=== PATIENT | male | born 1955 | race Caucasian/White ===

== ENCOUNTER → 2024-09-19 17:19 | Outpatient (REF) | payer BC, SELFPAY | LOC: RAD 17:19 | PROVIDERS: ATTENDING PHYSICIAN Orthopaedic Surgery; FAMILY PHYSICIAN Internal Medicine | DX: M25.552 Pain in left hip (principal) | CPT/HCPCS: 73700 ==

== ENCOUNTER → 2024-10-02 16:55 | Outpatient (REF) | payer BC, SELFPAY | LOC: RAD 16:55 | PROVIDERS: FAMILY PHYSICIAN Internal Medicine | DX: M89.9 Disorder of bone, unspecified (principal) | CPT/HCPCS: 71250 ==

== ENCOUNTER → 2024-11-02 08:04 | Outpatient (REF) | payer BC, SELFPAY | LOC: PET 08:04 | PROVIDERS: ATTENDING PHYSICIAN Internal Medicine Hematology & Oncology | DX: C73 Malignant neoplasm of thyroid gland (principal); C34.92 Malignant neoplasm of unspecified part of left bronchus or lung; C79.51 Secondary malignant neoplasm of bone | CPT/HCPCS: 78815; A9552 ==

== ENCOUNTER 2024-11-26 06:05 | Day surgery (SDC) | payer BC, SELFPAY ==
[2024-11-19 14:17] VITALS: BMI 33.7
[2024-11-19 14:31] LABS: Hematocrit 45.0 % (39.0-52.0); Hemoglobin 14.4 g/dL (13.0-18.0); Mean Corp Hgb Conc. 32.0 g/dL (33.0-37.0); Mean Corpuscular Volume 88.4 fL (80.0-94.0); Platelet Count 217 10^3/uL (130-400); Red Cell Dist. Width 13.5 % (11.5-14.5)
[2024-11-19 14:41] LABS: INR 0.97; PT 13.2 Sec (11.4-14.6)
[2024-11-19 14:42] LABS: APTT 24.6 Sec (23.4-35.0)
[2024-11-19 15:06] LABS: Blood Urea Nitrogen 15 mg/dl (9-20); Calcium 9.8 mg/dl (8.4-10.2); Carbon Dioxide 29 mmol/L (22-30); Chloride 106 mmol/L (98-107); Estimated Creatinine Clearance 121 ml/min; Glucose 125 mg/dl (70-99); Potassium 4.4 mmol/L (3.5-5.1); Sodium 142 mmol/L (135-145); eGFR > 60.00
[2024-11-26] VITALS (7 sets, daily range): BP systolic 120–147; BP diastolic 68–99; BMI 33.7
[2024-11-26 07:07] LABS: Glucose - Point of Care 134 mg/dl (70-99)
[2024-11-26] MEDS: NSS 500 IV (07:09)
[2024-11-26 09:04] LABS: Glucose - Point of Care 159 mg/dl (70-99)
== END 2024-11-26 10:30 | disposition home or self-care (01) ==
LOC: SDS 06:05
PROVIDERS: ATTENDING PHYSICIAN Internal Medicine Critical Care Medicine; FAMILY PHYSICIAN Internal Medicine
DX: C34.12 Malignant neoplasm of upper lobe, left bronchus or lung (principal); R59.0 Localized enlarged lymph nodes; R09.89 Other specified symptoms and signs involving the circulatory and respiratory systems
CPT/HCPCS: 31627; 31623; 31629; 31628; 31624; 31652; 31654; 31899; 36415; 71045; 76000; 80048; 82962; 85027; 85610; 85730; 88112; 88173; 88305; 88333; 88341; 88342; 93005; C1887

== ENCOUNTER 2024-12-26 07:32 | Inpatient (IN) | payer BC, SELFPAY ==
[2024-12-17 08:43] LABS: Urine Character Clear (Clear)
[2024-12-17 08:46] LABS: INR 0.93; PT 12.7 Sec (11.4-14.6)
[2024-12-17 08:52] LABS: Hematocrit 47.3 % (39.0-52.0); Hemoglobin 15.1 g/dL (13.0-18.0); Mean Corp Hgb Conc. 31.9 g/dL (33.0-37.0); Mean Corpuscular Volume 88.6 fL (80.0-94.0); Nucleated Red Blood Cells % 0 % (-); Platelet Count 215 10^3/uL (130-400); Red Cell Dist. Width 12.5 % (11.5-14.5)
[2024-12-17 09:05] LABS: ALT (SGPT) 17 U/L (0-50); AST (SGOT) 17 U/L (17-59); Albumin 4.5 g/dl (3.5-5.0); Alkaline Phosphatase 105 U/L (38-126); Blood Urea Nitrogen 16 mg/dl (9-20); Calcium 9.6 mg/dl (8.4-10.2); Carbon Dioxide 29 mmol/L (22-30); Chloride 106 mmol/L (98-107); Glucose 153 mg/dl (70-99); Potassium 4.4 mmol/L (3.5-5.1); Sodium 142 mmol/L (135-145); Total Protein 6.8 g/dl (6.3-8.2); eGFR > 60.00
--- NOTE | 2024-12-17 09:19 | CM ---
Met with Mr. Lr in [facility] He states prior to admission he resides alone in a [address] with two steps to enter. He states he has a full flight of steps to get to his laundry room in the basement. He states prior to admission he was
independent with ambulation and adls. He states he has a single point cane and CPAP Machine at home. He states he has prescription plan and uses [facility]. He states he has friends and family that will check on him when he goes home. The
discharge plan is to return home with family and friend support with a home visit by the Transitional Care Nurse when medically stable.
We reviewed pre-op and post-op routines. We reviewed the shower instructions. He has the soap, written instructions and the Thoracic Surgery Educational Booklet. We also reviewed the restrictions including lifting and driving restrictions. We
discussed a home visit by the Transitional Care Nurse. He is agreeable to a home visit. The plan is for Robotic Assisted Left Lobectomy.
[2024-12-17 11:12] LABS: Glycohemoglobin (HgbA1c) 6.3 % (4.0-5.6)
[2024-12-17 13:45] VITALS: BMI 34.3
[2024-12-26] VITALS (14 sets, daily range): BP systolic 115–169; BP diastolic 63–115; BMI 33.1
--- NOTE | 2024-12-26 07:41 | W.CVOR.SURPR ---
CVOR Surgeon Immed Pre Op
-
I have examined this patient prior to performance of the scheduled procedure.
The patient's condition is unchanged from the time of the dictated/written History and
Physical and the patient is able to undergo the scheduled procedure.
All questions answered and he is ready to move forward. LEFT side marked.
--- NOTE | 2024-12-26 07:46 | PTCARENOTE ---
Surgical clip and prep preformed. Site marked by surgeon.
--- NOTE | 2024-12-26 10:39 | CM ---
Chart reviewed. Patient is in the OR today. Patient is independent of ADLS, lives alone in a [address], 2 [facility], ambulates with a SPC. Plan is for the patient to return home with CT Transitional RN. CM to follow
--- NOTE | 2024-12-26 11:06 | PTCARENOTE ---
Pt sent to CVGOR in bed, x 3 monitor, and scd's along.
--- NOTE | 2024-12-26 11:08 | PTCARENOTE ---
Pt sent to CVOR in bed, x 3 monitor, and scd's along.
[2024-12-26 11:58] LABS: Urine Character Clear (Clear)
[2024-12-26] MEDS: ANCEF IV (12:02)
[2024-12-26 12:18] LABS: Glucose - Point of Care 133 mg/dl (70-99)
[2024-12-26 14:20] LABS: Glucose - Point of Care 183 mg/dl (70-99)
[2024-12-26] MEDS: DILAUDID 0.5 MG IV ×3 (15:32→22:05)
[2024-12-26 15:44] LABS: Glucose - Point of Care 230 mg/dl (70-99)
[2024-12-26] MEDS: NOVOLOG vial 1 UNITS SC (15:55)
[2024-12-26] MEDS: ANCEF 10 IV (16:33)
[2024-12-26] MEDS: NEURONTIN 100 MG PO ×2 (16:33→20:04)
[2024-12-26] MEDS: ROXICODONE 2.5 MG PO ×2 (16:34→17:35)
[2024-12-26] MEDS: TYLENOL PO (16:40)
[2024-12-26] MEDS: HEPARIN 5000 UNITS SC (17:00)
[2024-12-26] MEDS: TORADOL 15 MG IV (17:00)
--- NOTE | 2024-12-26 17:11 | PTCARENOTE ---
Patient received from PACU s/p MG lobectomy. NSR via cm, SaO2 @ 95% on 4lnc. R radial arterial line present - leveled, flushed, and calibrated w/good waveform returned. L lateral chest tube to -20cm suction, int +1 leak. All procedural sites stable.
Patient updated to plan of care, in agreement.
--- NOTE | 2024-12-26 17:31 | W.PN.CT.SURG ---
CT Surgery Operative Note
-
THORACIC SURGERY OPERATIVE REPORT
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
Postoperative Diagnosis: Same
Procedure(s) Performed:
1. Robotic assisted left upper lobectomy
2. Mediastinal lymph node dissection
Date of Surgery: 12/26/2024
Comorbidities:
1. Diabetes
2. Hyperlipidemia
3. COPD
4. 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
Attending Surgeon: Selma Lawson MD, MPH
Assistants: Gertrude Bloom PA-C (present and necessary to assistant athletic trainer, exchanging robotic instruments, retraction, suction, exposure, suture management, and wound closure under my direction)
Anesthesiology: Prakash Jackson MD and Nicholas Hoyt CRNA
Scrub and Circulating RNs: Mayi Hurley RN, Tamar Oconnor RN
Anesthesia: Dual Lumen GETA
EBL: 50 cc
Products: None
Indication(s) for Procedures: 69-year-old male with biopsy-proven adenocarcinoma of the left upper lobe, clinical staging [id number]
Findings: Large necrotic tumor very obviously visible in the left upper lobe with what appeared to be hematoma likely from biopsy. The lung tissue overall was very very friable and could see emphysematous changes.
Specimen(s):
Station 8, x 4 nodes
Station 11, x 3 nodes
Station 5/6, x 7 nodes
Left upper lobe
Description of Procedure: The patient was taken to the operating room. Induction via general anesthesia with endotracheal intubation was performed and peripheral venous access and arterial monitoring were inserted. Their identity and procedure to be
performed were verified and they were positioned with the left side up on the operating table. The patient was then prepped and draped in a sterile fashion. A preoperative time-out was performed with all members of the team present. A Veress needle
was used to insufflate the chest after isolating the lung. An 8 mm port was placed in the midaxillary line at approximately the seventh intercostal space and confirmed to be intrathoracic without significant pulmonary injury. The chest was surveyed
for any evidence of metastatic disease. Patient tolerate insufflation without complication. 2 additional 12 mm trocars were placed on either side under camera guidance and a third 8 mm trocar was placed along the back. A 12 mm assistant press operator port was
placed in the 11th intercostal space above the insertion of the diaphragm. An intercostal nerve block was performed at intercostal spaces 5 through 8.
The thoracic cavity was inspected for evidence of metastatic disease. None was observed. We started with mobilization of the inferior pulmonary ligament. We worked our way clockwise dissecting out the hilum and harvest any lymph nodes identified.
The pulmonary arteries and veins leading to the upper lobe were identified and skeletonized. They were sequentially divided with a white load stapler. I clamped the bronchus and performed a test inflation which demonstrated unobstructed flow into
the remaining lower lobe. The specimen was displaced toward the apex while a chest tube was inserted and placed laterally towards the apex. The lung tissue was quite friable and showed areas of raw tissue particularly at the area of the lower lobe
where the hilum was developed. Pro-gel was used to reinforce the staple lines and hilum. The upper lobe was then placed into a specimen bag and extracted from the chest cavity. After confirming hemostasis, the lung was fully inflated and all
ports were removed. Incisions were closed in 3 layers including the fascia, dermal, and epidermis. Additional local anesthesia was injected into all incision sites. The skin wound was cleansed and sealed with Dermabond glue. With positive pressure
ventilation there was a significant air leak noted, however once the patient was extubated there was a small FE1 leak. Chest tube was left to -20 suction.
All instrument, sponge, and needle counts were confirmed to be correct x 2 at the end of the operation. The patient was transferred to the cardiac intensive care unit extubated in critical but stable condition.
I, Dr. Selma Lawson, was present, scrubbed for, and performed all critical elements of this procedure.
Selma Lawson MD, MPH
Cardiothoracic Surgeon
[facility]
This operative dictation was created using the [employer] Mobileation system. Please excuse any grammatical, typographical, or 'sound alike' errors
[2024-12-26 17:32] LABS: Glucose - Point of Care 199 mg/dl (70-99)
[2024-12-26] MEDS: GLUCOPHAGE 500 MG PO (17:35)
[2024-12-26] MEDS: NOVOLOG FLEXPEN-MODERATE RESISTANCE 1 UNITS SC (17:37)
[2024-12-26] MEDS: LOPRESSOR 12.5 MG PO ×2 (18:22→20:04)
--- NOTE | 2024-12-26 20:00 | SUR.OPER ---
assumed care of patient @ 1900. received pt laying in bed
Neuro- aox3
CV-NSR, good pulses no edema. BP elevated, lopressor given.
Lungs- Diminished in the L base, satting mid 90s on room air. L lateral chest tube to wall suction with an intermittent +1 air leak. crepitus felt along posterior L lung up to shoulder blade.
GI-Hypoactive BS, tolerating diet
- Voided clear yellow urine in toilet
Skin- Lateral incisions x4 CDI RADHA.
Lines- L hand and R wrist PIV intact
Pt resting comfortably with call eden within reach .
[2024-12-26] MEDS: SENOKOT 8.6 MG PO (20:03)
[2024-12-26] MEDS: TYLENOL 1000 MG PO (20:03)
[2024-12-26] MEDS: LIPITOR 10 MG PO (20:03)
[2024-12-26] MEDS: ANCEF 5 IV (20:05)
[2024-12-26] MEDS: ROXICODONE 5 MG PO (21:07)
[2024-12-26 21:10] LABS: Glucose - Point of Care 216 mg/dl (70-99)
[2024-12-27] VITALS (11 sets, daily range): BP systolic 102–173; BP diastolic 63–94; BMI 33.3
--- NOTE | 2024-12-27 | PTCARENOTE ---
pt having ocasional dropped beats, CTPA notified. BP stable, pt asymptomatic resting comfortably.
[2024-12-27] MEDS: HEPARIN 5000 UNITS SC ×4 (01:00→22:02)
[2024-12-27] MEDS: DILAUDID 0.5 MG IV ×2 (02:11→08:46)
--- NOTE | 2024-12-27 02:40 | W.PN.CT ---
Today's Communication / Plan
-
-pod #1
-no significant issues overnight. Neuro and hemodynamically intact
-small pauses <3 sec noted on tele, asymptomatic. ? Mobitz 1 AVB ([place]). Preop ECG was sinus rachel mid 50s with 1st degree AVB. Got Lopressor 12.5 mg last night- will hold for now
-L CT on -20 sxn with +1 intermittent air leak with deep breathing, talking and cough. Output 70/95 in 12/24 hrs
-follow daily CXR
-encourage IS, OOB
-on sq Heparin for DVT prophylaxis
Assessment / Plan
-
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 Lawson on 12/26/24, pod #1
- Diabetes II (A1C 6.3)
- Hyperlipidemia
- Former smoker/COPD
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
- Chronic L hip pain, uses Roxicodone 5 mg 2-3 times/day
- NICOLE
- b/l cataract extractions with IOL
- Preop 1st degree AVB
Discussed patient care with: Nursing and Care Team
Subjective
-
Date of Service: December 27, 2024
Objective Data
-
PT 12.7 Sec (11.4-14.6) 12/17/24 08:18
INR 0.93 12/17/24 08:18
Vital Signs
Vital Signs
Temp Pulse Resp BP Pulse Ox
98.6 F 76 16 153/113 96
12/26/24 20:00 12/26/24 19:05 12/26/24 20:00 12/26/24 19:00 12/26/24 20:00
CT Intake/Output/Weight
12/26/24 12/26/24 12/27/24
06:59 18:59 06:59
Intake Total 580 / 580
Output Total 25 / 450 425 / 450
Balance 555 / 130 -425 / 130
SaO2: 96
Physical Exam
-
General: Awake and AOx3
Cardiovascular: Regular rate & rhythm, No Murmurs and No Rub
Respiratory: Decreased Breath Sounds (rhonchi on L. No wheeze)
Incision: Clean, Dry and Dressing Intact
Extremities: No Edema
Abdomen: soft, nontender, nondistended, + decreased bowel sounds
Data Reviewed
-
Lab Results: Results Reviewed
Medications: Active Meds Reviewed
Chest X-Ray: Report Reviewed and Image Reviewed
ECG: Report Reviewed and Image Reviewed
[2024-12-27 02:42] LABS: Hematocrit 43.3 % (39.0-52.0); Hemoglobin 13.9 g/dL (13.0-18.0); Mean Corp Hgb Conc. 32.1 g/dL (33.0-37.0); Mean Corpuscular Volume 85.1 fL (80.0-94.0); Platelet Count 213 10^3/uL (130-400); Red Cell Dist. Width 12.2 % (11.5-14.5)
[2024-12-27 03:04] LABS: Blood Urea Nitrogen 19 mg/dl (9-20); Calcium 8.8 mg/dl (8.4-10.2); Carbon Dioxide 26 mmol/L (22-30); Chloride 104 mmol/L (98-107); Estimated Creatinine Clearance 109 ml/min; Glucose 260 mg/dl (70-99); Magnesium 2.3 mg/dl (1.6-2.3); Potassium 4.7 mmol/L (3.5-5.1); Sodium 136 mmol/L (135-145); eGFR > 60.00
[2024-12-27] MEDS: ANCEF 5 IV ×2 (05:10→13:01)
--- NOTE | 2024-12-27 05:14 | PTCARENOTE ---
pt with short rachel episode to 38 BPM while getting chest xray. CTPA notified. pt resting, asymptomatic, BP stable.
[2024-12-27] MEDS: ROXICODONE 5 MG PO ×4 (05:39→20:21)
[2024-12-27] MEDS: TYLENOL 1000 MG PO ×3 (05:39→21:35)
[2024-12-27] MEDS: FLEXERIL 5 MG PO ×2 (07:03→16:10)
[2024-12-27 07:59] LABS: Glucose - Point of Care 237 mg/dl (70-99)
--- NOTE | 2024-12-27 08:00 | PTCARENOTE ---
pt received from previous RN, oriented, OOB in chair. SR on the monitor, HR 60-80s. SBP 130s. palpable pulses, no edema. pt on RA, 94% POX. lungs diminished on L. IS encouraged. CT x1, no air leak noted, +crepitus. pt placed to WS by COPY CLERK. pt abdomen
round, s/n, denies n/v. diet tolerated well. +BS. voids. ambulates w/ stand by assist. L lateral incisions x4 PROJECT SURVEYOR. chest tube site c/d/i. PIV x2. see worklist for VS, I&O, and assessment.
[2024-12-27] MEDS: LIDOCAINE 4% PATCH 1 PATCH TOPICAL (08:36)
[2024-12-27] MEDS: SENOKOT 8.6 MG PO ×2 (08:36→20:18)
[2024-12-27] MEDS: MIRALAX 17 GRAMS PO (08:36)
[2024-12-27] MEDS: GLUCOPHAGE 500 MG PO ×2 (08:36→16:04)
[2024-12-27] MEDS: NEURONTIN 100 MG PO ×3 (08:36→21:35)
[2024-12-27] MEDS: NOVOLOG FLEXPEN-MODERATE RESISTANCE SC (08:42)
--- NOTE | 2024-12-27 11:06 | CM ---
Chart reviewed. Patient is OOB sitting in the chair, friend at bedside. Patient is independent of ADLS, lives alone in a [address], 2 [facility], ambulates with a SPC. Plan is for the patient to return home with CT Transitional RN. CM to follow
--- NOTE | 2024-12-27 12:15 | PTCARENOTE ---
pt VSS, no changes in assessment. CT to remain to WS per CLERICAL TRANSCRIBER. pt ambulates in room w/ stand by. oral hygiene performed. pt OOB in chair eating lunch.
[2024-12-27 12:23] LABS: Glucose - Point of Care 190 mg/dl (70-99)
[2024-12-27] MEDS: NOVOLOG FLEXPEN-MODERATE RESISTANCE 1 UNITS SC (12:23)
[2024-12-27] MEDS: DILAUDID 0.25 MG IV ×2 (16:10→22:02)
--- NOTE | 2024-12-27 16:33 | PTCARENOTE ---
pt VS completed, pt attempted to get self back to bed but felt like he pulled something, pt c/o L chest pain. TACK MAKER aware. PRN Flexeril and Dilaudid 0.25mg IVP given. intermittent +1 air leak, TACK MAKER aware. CXR completed. pt aware to call if needs help
moving around. voids in urinal.
[2024-12-27 17:36] LABS: Glucose - Point of Care 258 mg/dl (70-99)
[2024-12-27] MEDS: NOVOLOG FLEXPEN-MODERATE RESISTANCE 5 UNITS SC (17:39)
--- NOTE | 2024-12-27 19:00 | PTCARENOTE ---
report received from previous RN, walking rounds done. pt AAOx4, in chair. VSS. NSR on the monitor, HR 60-70s. +peripheral pulses. no edema present. POX 95% on room air. bilateral breath sounds present. IS encouraged. CT x1 intact to water seal,
drainage WNL, no air leak noted, +crepitus. ABD soft, nontender +BS. voids without difficulty. surgical sites stable. PIV x2 intact and patent. see worklist for full assessment, VS, and interventions.
[2024-12-27] MEDS: REMOVE LIDOCAINE PATCH 1 PATCH REMOVE (20:18)
[2024-12-27] MEDS: DESYREL 100 MG PO (21:35)
[2024-12-27] MEDS: LIPITOR 10 MG PO (21:35)
--- NOTE | 2024-12-28 00:55 | W.PN.CT ---
Addendum entered and electronically signed by DEL Lee 12/28/24 09:48:
Atelectasis
Original Note:
Today's Communication / Plan
-
-pod #2
-no significant issues overnight. Neuro and hemodynamically intact
-small pauses <3 sec noted on tele, asymptomatic, yesterday-cardiology consulted and beta terrance on hold. Bradycardia (50's) overnight.
-CT output 30/45 for 12/24hrs.
-follow daily CXR
-encourage IS, OOB
-on sq Heparin for DVT prophylaxis
-discharge planning
Assessment / Plan
-
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 Lawson on 12/26/24, pod #2
- Diabetes II (A1C 6.3)
- Hyperlipidemia
- Former smoker/COPD
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
- Chronic L hip pain, uses Roxicodone 5 mg 2-3 times/day
- NICOLE
- b/l cataract extractions with IOL
- Preop 1st degree AVB
Subjective
Procedure
s/p Robotic assisted left upper lobectomy and Mediastinal lymph node dissection by Dr. Lawson on 12/26/24
-
Date of Service: December 28, 2024
Objective Data
-
Lab Results
12/27/24 02:34
12/27/24 02:34
PT 12.7 Sec (11.4-14.6) 12/17/24 08:18
INR 0.93 12/17/24 08:18
Vital Signs
Vital Signs
Temp Pulse Resp BP Pulse Ox
98.3 F 56 18 173/94 96
12/27/24 22:10 12/28/24 03:00 12/27/24 22:10 12/27/24 22:10 12/28/24 01:01
Intake & Output
12/27/24 12/27/24 12/28/24
14:59 22:59 06:59
Output Total 605 / 64 30 /
Balance - -60 / -645 -5
SaO2: 96
Physical Exam
-
General: AOx3
Cardiovascular: Regular rate & rhythm
Respiratory: Clear
Incision: Clean, Dry and Intact
Extremities: No Edema
[2024-12-28] MEDS: DILAUDID 0.25 MG IV (02:48)
[2024-12-28] MEDS: ROXICODONE 5 MG PO ×3 (02:48→12:44)
[2024-12-28 04:42] VITALS: BP 142/79
[2024-12-28 04:48] VITALS: BMI 33.8
[2024-12-28] MEDS: FLEXERIL 5 MG PO (04:53)
[2024-12-28] MEDS: TYLENOL 1000 MG PO (04:53)
[2024-12-28] MEDS: TORADOL 15 MG IV (04:53)
[2024-12-28 07:39] VITALS: BP 156/81
[2024-12-28 07:41] LABS: Glucose - Point of Care 168 mg/dl (70-99)
[2024-12-28] MEDS: NOVOLOG FLEXPEN-MODERATE RESISTANCE 1 UNITS SC (07:41)
--- NOTE | 2024-12-28 08:00 | PTCARENOTE ---
pt received from previous RN, oriented, OOB in chair. SB/SR w/ PACs/PVCs on the monitor, HR 50-60s. SBP 150s. palpable pulses, no edema. pt on RA, 100% POX. lungs diminished on L. IS encouraged. CT x1 to WS, no air leak noted, +crepitus. pt abdomen
round, s/n, denies n/v. diet tolerated well. +BS. voids. ambulates w/ stand by assist. L lateral incisions x4 ROOF PLUMBER. chest tube site c/d/i. PIV x2. see worklist for VS, I&O, and assessment.
[2024-12-28] MEDS: HEPARIN 5000 UNITS SC (08:26)
[2024-12-28] MEDS: GLUCOPHAGE 500 MG PO (08:26)
[2024-12-28] MEDS: NEURONTIN 100 MG PO (08:26)
[2024-12-28] MEDS: SENOKOT 8.6 MG PO (08:26)
[2024-12-28] MEDS: LIDOCAINE 4% PATCH 1 PATCH TOPICAL (08:27)
[2024-12-28] MEDS: MIRALAX 17 GRAMS PO (08:27)
[2024-12-28] MEDS: LASIX 40 MG IV (08:27)
[2024-12-28 08:36] LABS: Blood Urea Nitrogen 20 mg/dl (9-20); Calcium 9.4 mg/dl (8.4-10.2); Carbon Dioxide 33 mmol/L (22-30); Chloride 102 mmol/L (98-107); Estimated Creatinine Clearance 98 ml/min; Glucose 164 mg/dl (70-99); Potassium 4.4 mmol/L (3.5-5.1); Sodium 139 mmol/L (135-145); eGFR > 60.00
--- NOTE | 2024-12-28 09:41 | PN.CDI ---
CDI
- -
CDI:
Physician Documentation Request
Admit Date: 12/26/24 07:32
Dear Doctor Lulu/JOSY,
Please review the following and provide your response in the progress notes.
Clinical Indicators:
The diagnosis of Atelectasis was included in the signed CXR 12/27.
Additional clinical indicators in the chart include:
Pt admission with adenocarcinoma of left upper lobe- s/p Robotic assisted left upper lobectomy and Mediastinal lymph node dissection by Dr. Lawson on 12/26/24
Progress note 12/28, ' -encourage IS, OOB...'
Please indicate in your progress notes if you are in agreement that the above diagnosis is valid for this patient:
____ - Atelectasis is a valid diagnosis (Please include it in your progress notes)
____ - Atelectasis is not a valid diagnosis for this patient
____ - Other ( please specify)
Use of terms such as suspected, likely, concern for, or probable are acceptable for a diagnosis that is being evaluated, monitored or treated as if it exists and can be coded in the inpatient setting, when documented at the time of discharge.
Thank you,
Michelle Cortez RN
CDI Specialist
[facility]
Please use your independent medical judgment in providing your response.
--- NOTE | 2024-12-28 09:42 | PTCARENOTE ---
pt ambulated in hallway, tolerated, no c/o SOB. pt placed back to bed, CT dc'd by CESAR Harmon. dressing c/d/i.
--- NOTE | 2024-12-28 09:48 | W.PN.UPDATE ---
Update Note
Progress Note Update
CDI query:
Atelectasis is a valid diagnosis
--- NOTE | 2024-12-28 09:55 | W.DCSUMMARY ---
Discharge Summary
Discharge Data
Date of Admission: 12/26/24
Date of Discharge: 12/28/24
-
Pending Results: No
Hospital Course
Primary care physician:
Dr. Tyson
Outpatient metal mold dresser:
Dr. Shah
Inpatient consultants:
CBC
Procedures:
1. Robotic assisted left upper lobectomy and Mediastinal lymph node dissection by Dr. Lawson on 12/26/24
Primary Diagnosis:
1. 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
Secondary Diagnoses:
- Diabetes II (A1C 6.3)
- Hyperlipidemia
- Former smoker/COPD
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
- Chronic L hip pain, uses Roxicodone 5 mg 2-3 times/day
- NICOLE
- b/l cataract extractions with IOL
- Preop 1st degree AVB
HPI: 69-year-old male with biopsy-proven adenocarcinoma of the left upper lobe, clinical staging [id number] presents on 12/26 for elective TERI removal with Dr. Lawson.
Hospital course: Patient was electively admitted on 12/26 for a robotic assisted left upper lobectomy with Dr. Cruz. Postoperatively he had a +1 airleak on -20 cm of suction. Patient remained hemodynamically stable and arterial line was DC'd.
He was started on a clear liquid diet and resumed on his metformin. He was started on beta-blockers for atrial fibrillation prevention. On 12/27 postoperative day 1, patient was placed on waterseal and repeat chest x-ray was stable however
subcutaneous air was observed. Throughout the day his beta-terrance was placed on hold due to occasional pauses and a first-degree AV block. Cardiology was consulted. On 12/28 postoperative day 2, left pleural chest tube was discontinued and
stitch was tied down and repeat x-ray did not show any pneumothorax. Cardiology saw patient recommended to hold beta-blockers and get a transthoracic echocardiogram. Echo was unremarkable and he was deemed stable for discharge home. Patient will
follow-up in the office for suture removal.
Home medication changes:
see below
Discharge Plan
-
Patient Disposition: Home (Routine Discharge)
Discharge Diagnosis/Procedures: TERI lobectomy 12/26/24
Condition: Good
Diet: Diabetic, Carb Controlled
Activity: No strenuous activity
Driving Restrictions: No driving for 2 weeks
Bathing Restrictions: OK to Shower
Specialty Instructions: Weigh Daily- Call MD for wt gain/loss 3 lbs overnight/5 lbs in 1 week
Referrals:
CT Transitional Care Nurse [Outside]
Referral Note: The Cardiothoracic Transitional Care Nurse will call you to set up a visit in 1-2 days.
Jameson Gipson MD [Active, Cardiology] - 03/29/25 1:20 pm
Yady Bauer DO [Family Provider, Internal Medicine]
Selma Lawson MD [Active, Cardiac Surgery] - 01/09/25 10:30 am
Prescriptions:
New
cyclobenzaprine 10 mg Tablet
5 mg PO Q8HPRN PRN (Reason: muscle spasm) Qty: 30 0RF
gabapentin 100 mg Capsule
100 mg PO TID Qty: 60 0RF
Continued
metformin 500 mg Tablet
500 mg PO BIDWMEAL
atorvastatin 10 mg Tablet
10 mg PO HS
acetaminophen 500 mg Tablet
1,000 mg PO DAILY
ascorbic acid (vitamin C) [Vitamin C] 500 mg Tablet
1,000 mg PO DAILY
trazodone 100 mg Tablet
100 mg PO HS PRN (Reason: insomnia)
zinc
1 tab PO DAILY
oxycodone 5 mg Tablet
5 mg PO Q4H PRN (Reason: pain )
Held
ibuprofen [Advil] 200 mg Tablet
600 mg PO Q6H PRN (Reason: pain)
Hold Instructions: Resume on 01/18/25.
Discharge Orders:
Discharge Patient (As Directed); Ordered 12/28/24
Ordered By: Tamar Cabrera
Care Plan Goals
Care Plan Goals:
Problem: Readiness for enhanced knowledge related to diagnosis and treatment plan
Goal: Understand your diagnosis and treatment plan needs, including medications if applicable.
Instructions: Know your diagnosis, underlying causes and treatment plan options, including medications if applicable. Consult with your health care team to learn about your diagnosis and treatment plan, including medications if applicable.
Discharge Date and Time
Print Language: TELUGU
[2024-12-28 10:54] LABS: Glucose - Point of Care 120 mg/dl (70-99)
--- NOTE | 2024-12-28 11:10 | CON.CAR ---
Consultation
Consultation Request
Date/Time Consultation Requested: 12/27/24, 08
Date/Time Consultation Performed: 12/28/24, 09
Requesting Provider: Lulu
Performing Provider: Leonela
Reason for Consultation: Abnormal EKG
Medical History
-
Chief Complaint: abnormal EKG
History of Present Illness:
69 yo male with PMH of DM, hyperlipidemia, adenocarcinoma of upper lobe of left lung, former tobacco, medullary carcinoma of the thyroid found in his left femur. Admitted following left upper lobectomy 12/26. We are consulted for abnormal EKG and
tele. Patient offer no cardiac complaints.
Past Medical History
Past Medical History: Arrhythmias (1st degree AVB), Cancer (adenocarcinoma of upper lobe of left lung), Hypercholesterolemia and NIDDM
Past Surgical History: Orthopedic (hip surgery) and Other (cataract surgery)
Social History
Tobacco: Former Smoker
Family History
Family History: CAD (father)
Allergies / Home Medications
Allergy/AdvReac Type Severity Reaction Status Date / Time
No Known Allergies Allergy Verified 12/14/24 13:52
�Medication �Instructions �Recorded �Confirmed �Type
atorvastatin 10 mg tablet 10 mg PO HS High Cholesterol 11/21/24 12/26/24 History
metformin 500 mg tablet 500 mg PO BIDWMEAL Diabetes 11/21/24 12/26/24 History
acetaminophen 500 mg tablet 1,000 mg PO DAILY Pain 11/26/24 12/26/24 History
ascorbic acid (vitamin C) 500 mg 1,000 mg PO DAILY Supplement 11/26/24 12/26/24 History
tablet (Vitamin C)
ibuprofen 200 mg tablet (Advil) 600 mg PO Q6H PRN pain 11/26/24 12/26/24 History
trazodone 100 mg tablet 100 mg PO HS PRN insomnia 12/14/24 12/26/24 History
zinc 1 tab PO DAILY Supplement 12/14/24 12/26/24 History
oxycodone 5 mg tablet 5 mg PO Q4H PRN pain 12/27/24 12/27/24 History
Review of Systems
-
History Source: Patient
All other systems: Negative unless noted
Physical Exam
Vital Signs
Temp Pulse Resp BP Pulse Ox
98.2 F 83 18 156/81 100
12/28/24 08:00 12/28/24 10:00 12/28/24 08:00 12/28/24 07:39 12/28/24 09:51
Lab Results
12/27/24 02:34
12/28/24 07:46
Physical Exam
General: Well Developed, Well Nourished and No Apparent Distress
HEENT: Normocephalic and Anicteric
Respiratory: Clear and Non Labored Respirations
Cardiac: S1/S2 (normal), Regular Rhythm, Murmur (none) and Peripheral Edema (none)
Musculoskeletal: No Clubbing, No Cyanosis and No Edema
Neuro: AO x 3
Psych: Calm
Impression / Plan
-
69 yo male with PMH of DM, hyperlipidemia, adenocarcinoma of upper lobe of left lung, former tobacco, medullary carcinoma of the thyroid found in his left femur. Admitted following left upper lobectomy 12/26. We are consulted for abnormal EKG and
tele.
Abnormal EKG, tele: 1st degree AVB. Sinus rhythm/sinus rachel. PAC's, PVC's, AIVR. He has no symptoms. Will check echo. If unremarkable, he will follow up with me in the office. He wants to wait until a few months from now, because he had been going
to 'too many doctors' visits.' Would avoid beta terrance.
Hyperlipidemia: stable. Continue atorvastatin.
Data Reviewed
-
EKG: Tracing Personally Visualized and interpreted (NSR, 1st degree AVB) and Other (Tele: Sinus rhythm/sinus rachel. PAC's, PVC's, AIVR.)
Labs: Labs Reviewed by me
--- NOTE | 2024-12-28 11:11 | CM ---
Chart reviewed. Patient had his CT DCD this am. Patient is independent of ADLS, lives with alone in a [address], 2 [facility], ambulates with a SPC. Plan is for the patient to return home with CT Transitional RN. CM to follow
[2024-12-28] MEDS: NOVOLOG FLEXPEN-MODERATE RESISTANCE SC (11:26)
--- NOTE | 2024-12-28 11:48 | CARDSERVLU ---
Echocardiogram with Lumason completed after protocol screening completed. Allergies verified.
Patent IV site: _Rt FA____
IV site flushed with 0.9% NaCl pre and post administration.
Diluted bolus method utilized to enhance visualization of ventricular rossi.
Total volume given: ___2.5 mL
Patient tolerated all procedures well without complications.
[2024-12-28 12:05] VITALS: BP 154/79
--- NOTE | 2024-12-28 12:27 | PTCARENOTE ---
pt VSS, no changes in assessment. CXR completed post CT removal. ECHO completed. pt OOB in chair, ambulating in room and hallway independently.
[2024-12-28 12:40] LABS: Glucose - Point of Care 369 mg/dl (70-99)
[2024-12-28 12:41] LABS: Glucose - Point of Care 214 mg/dl (70-99)
--- NOTE | 2024-12-28 14:30 | PTCARENOTE ---
EMPLOYEE RELATIONS ADMINISTRATOR and Dr. Gipson aware of ectopy, per Dr. Gipson, ken for DC. pt discharged home. discharge instructions reviewed w/ patient, questions answered. home meds reviewed. pt refused shower. IV and tele dc'd. pt dressed self. pt left w/ all belongings via
wheelchair w/ volunteer escort.
== END 2024-12-28 14:30 | disposition home or self-care (01) | DRG 164 ==
LOC: CVICU 07:32
PROVIDERS: Clinical Nurse Specialist Acute Care; Nurse Practitioner; ADMITTING PHYSICIAN Student in an Organized Health Care Education/Training Program; CONSULT PHYSICIAN Internal Medicine; FAMILY PHYSICIAN Internal Medicine
PROC: 8E0W4CZ Robotic Assisted Procedure of Trunk Region, Percutaneous Endoscopic Approach (ICD-10-PCS; 2024-12-26)
PROC: 0BTG4ZZ Resection of Left Upper Lung Lobe, Percutaneous Endoscopic Approach (ICD-10-PCS; 2024-12-26)
DX: C34.12 Malignant neoplasm of upper lobe, left bronchus or lung (principal); J98.11 Atelectasis; E11.9 Type 2 diabetes mellitus without complications; E78.00 Pure hypercholesterolemia, unspecified; J44.9 Chronic obstructive pulmonary disease, unspecified; I44.0 Atrioventricular block, first degree; G47.33 Obstructive sleep apnea (adult) (pediatric); G89.29 Other chronic pain; M25.552 Pain in left hip; R00.1 Bradycardia, unspecified; Z87.891 Personal history of nicotine dependence; Z79.84 Long term (current) use of oral hypoglycemic drugs
CPT/HCPCS: 32505; 36415; 71045; 80048; 80053; 81003; 82248; 82962; 83036; 83735; 85025; 85027; 85610; 86850; 86900; 86901; 86920; 87070; 88305; 88309; 88313; 88341; 88342; 93005; 93306; Q9950

== ENCOUNTER 2024-12-30 12:34 | Inpatient (IN) | payer BC, SELFPAY ==
[2024-12-30] VITALS (11 sets, daily range): BP systolic 140–188; BP diastolic 70–118
--- NOTE | 2024-12-30 10:35 | ED.GENMED ---
History of Present Illness
General
Chief Complaint: Swelling
Time Seen by Provider: 12/30/24 10:35
History of Present Illness
History of Present Illness:
FOCUSED PAST MEDICAL HISTORY
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
REVIEW OF OLD RECORDS
- I reviewed the: Note from Curt Galindo, VITOR with CT surgery. 'Postop day 4 from left upper lobectomy who called complaining of worsening neck swelling concerning for subcutaneous emphysema, he had left-sided subcu air prior to discharge but he
says it feels worse today and has spread to the other side; get chest x-ray'
- Dr. Cruz performed left upper lobectomy, on postop day 1 he had subcutaneous air, on postop day 2 his left chest tube was removed in showed no pneumothorax, echo was deemed stable for discharge
Note:
CHIEF COMPLAINT(S)
Swelling of the neck and possible subcutaneous emphysema.
HISTORY OF PRESENT ILLNESS
The patient is a 69-year-old male who presents with swelling of the neck, which has been persistent since a surgical procedure performed recently on a Tuesday. He reports that initially, there was some air outside the lung, described as
subcutaneous emphysema, but it is unclear if there has been any progression in symptoms. The patient describes a sensation siria to 'Rice Krispies' under the skin, indicating crepitus. He denies any significant change in the swelling of the neck but
states that the neck was noted to have swelling and crepitus. He has experienced shortness of breath intermittently, but he feels it has not worsened since the surgical procedure. He denied shortness of breath prior to the surgery. The patient
expressed no significant change in usual activities or energy levels since the procedure.
ADDITIONAL HISTORY OBTAINED FROM SOURCES OTHER THAN THE PATIENT
Dr. Curt Galindo communicated with the surgical team, including Dr. Aguirre, regarding the patients condition. Surgery is aware and will evaluate the patient. They recommend further imaging to assess the subcutaneous emphysema and any potential
changes since the surgery.
PHYSICAL EXAM
General: Alert, no acute distress.
Skin: Warm, dry.
Head: Normocephalic, atraumatic.
Neck: Supple, with crepitus noted. Marked anterior swelling of the neck diffusely
Eye Ears, Nose, Mouth and Throat: Oral mucosa moist.
Cardiovascular: Normal peripheral perfusion, no edema.
Respiratory: Respirations are non-labored but decreased equally with some decreased inspiratory effort
Gastrointestinal: Abdomen nondistended.
Back: Normal range of motion, normal alignment.
Musculoskeletal: Normal range of motion, normal strength.
Neurological: Alert and oriented to person, place, time, and situation, no focal neurological deficit observed.
Psychiatric: Cooperative, appropriate mood & affect.
PLAN
The patient will be sent for CT imaging of the neck and chest without contrast to evaluate the extent of the subcutaneous emphysema and any related complications. The surgical team has been notified, and Dr. Waters from CT surgery will review the
imaging results.
DIFFERENTIAL DIAGNOSIS
The Differential Diagnosis includes, in no particular order and is not limited to:
1. Post-surgical subcutaneous emphysema
2. Pneumothorax
3. Respiratory tract injury
4. Soft tissue infection
5. Hematoma
6. Airway/tracheal injury
7. Mediastinal emphysema
8. Vascular injury
9. Lymphatic leakage
10. Salivary gland disorder
Disposition:
SUMMARY OF ENCOUNTER
The patient is a 69-year-old male presenting with neck swelling and possible subcutaneous emphysema following a recent surgical procedure. A CT scan of the neck and chest was performed, revealing a large left-sided pneumothorax with a significant
amount of subcutaneous emphysema.
DISPOSITION
Admit to the service of Dr. Waters for further management.
ASSESSMENT
Large left-sided pneumothorax with subcutaneous emphysema post-surgical procedure.
EMERGENCY TREATMENTS ADMINISTERED
A chest tube was successfully placed by Dr. Waters.
MANAGEMENT OF THE PATIENTS CARE WAS DISCUSSED WITH
Consultation with Dr. Waters from CT surgery regarding the placement of the chest tube and subsequent management.
PLAN
The patient will be admitted to the appropriate service for monitoring and further management following chest tube placement.
INDEPENDENT REVIEW OF LABS AND INTERPRETATION OF TESTS
My independent interpretation of the CT imaging reveals a large pneumothorax on the left side with massive subcutaneous emphysema.
MEDICAL DECISION MAKING
- Complexity of Data Reviewed: Chronic conditions affecting care. Differential diagnosis includes post-surgical subcutaneous emphysema, pneumothorax, respiratory tract injury, among others.
- Data:
Category 1: CT imaging of the neck and chest was reviewed.
Category 3: Discussion of management occurred with Dr. Waters regarding the pneumothorax and the need for chest tube placement.
- Risk: High risk due to the presence of pneumothorax and subcutaneous emphysema, necessitating admission and surgical intervention.
DIAGNOSIS
- Large left-sided pneumothorax (ICD-10: J93.82)
- Subcutaneous emphysema (ICD-10: T79.8XXA)
SUMMARY OF ENCOUNTER
The patient is a 69-year-old male presenting with neck swelling and possible subcutaneous emphysema following a recent surgical procedure. A CT scan of the neck and chest was performed, revealing a large left-sided pneumothorax with a significant
amount of subcutaneous emphysema.
DISPOSITION
Admit to the service of Dr. Waters for further management.
ASSESSMENT
Large left-sided pneumothorax with subcutaneous emphysema post-surgical procedure.
EMERGENCY TREATMENTS ADMINISTERED
A chest tube was successfully placed by Dr. Waters.
MANAGEMENT OF THE PATIENTS CARE WAS DISCUSSED WITH
Consultation with Dr. Waters from CT surgery regarding the placement of the chest tube and subsequent management.
PLAN
The patient will be admitted to the appropriate service for monitoring and further management following chest tube placement.
INDEPENDENT REVIEW OF LABS AND INTERPRETATION OF TESTS
My independent interpretation of the CT imaging reveals a large pneumothorax on the left side with massive subcutaneous emphysema.
MEDICAL DECISION MAKING
- Complexity of Data Reviewed: Chronic conditions affecting care. Differential diagnosis includes post-surgical subcutaneous emphysema, pneumothorax, respiratory tract injury, among others.
- Data:
Category 1: CT imaging of the neck and chest was reviewed.
Category 3: Discussion of management occurred with Dr. Waters regarding the pneumothorax and the need for chest tube placement.
- Risk: High risk due to the presence of pneumothorax and subcutaneous emphysema, necessitating admission and surgical intervention.
DIAGNOSIS
- Large left-sided pneumothorax (ICD-10: J93.82)
- Subcutaneous emphysema (ICD-10: T79.8XXA)
RADIOLOGY
- CT shows large left pneumothorax with large subcu air
LABS
- CBC and chemistries unremarkable except for glucose of 173
Past History
Past History
ED Past Medical History: None
ED Past Surgical History: None
Social History
Alcohol: Occasional
Drug: None
Personal:
Living: with family
Phy Exam
Physical Exam
Physical Exam:
See HPI
Scores
Heart Failure Risk
Heart Failure Risk Score: Not Applicable
Course
Orders/Labs/Results
Orders:
Orders
12/30/24 Lunch
Clear Liquid
12/30/24 10:35
CXR2 [CR Chest - 2 Views ] Urgent
Comment:
Reason For Exam: post op, neck swelling
12/30/24 10:53
CT Chest W/o Iv Contrast Urgent
Comment:
Reason For Exam: eval sq air
CT Neck W/o Iv Contrast Urgent
Comment:
Reason For Exam: eval sq air
12/30/24 10:54
Admit Patient As Directed
Co-Sign Provider:
Level of Care: Inpatient admission
Assign to:: CVICU
Physician / Group: Selma Lawson
Diagnosis: s/p left upper lobectomy, subcutaneous emphysema
Reason for Hospitalization: pneumothorax requiring chest tube placement
Expected length of stay greater than two midnights?: Yes
ELOS- Estimated Length of Stay in days: 2
I certify the patient meets the requirements for IP care: Yes
PRN Pain Medication Management As Directed
May give lesser potent ordered pain med per pt: Yes
preference::
Protocol:: Medication orders for pain may be administered in a
manner that supports deferring to patient preference
when the pt is:
- Requesting an ordered lesser potent pain medication.
Least to most potent pain medications are defined
as: acetaminophen < NSAID < tramadol < opioids
(morphine, oxycodone, hydromorphone).
- Requesting a lesser dose of the same medication IF
ORDERED.
- Requesting a less intrusive route of administration
if both routes are prescribed by the provider (PO <
IV).
12/30/24 10:55
Pneumatic Compression Sleeves As Directed
Type: Knee high
DX Deep Vein Thrombosis Video Routine
12/30/24 10:57
Basic Metabolic Panel Urgent
Complete Blood Count/With Diff Urgent
12/30/24 11:26
PRN Pain Medication Management As Directed
May give lesser potent ordered pain med per pt: Yes
preference::
Protocol:: Medication orders for pain may be administered in a
manner that supports deferring to patient preference
when the pt is:
- Requesting an ordered lesser potent pain medication.
Least to most potent pain medications are defined
as: acetaminophen < NSAID < tramadol < opioids
(morphine, oxycodone, hydromorphone).
- Requesting a lesser dose of the same medication IF
ORDERED.
- Requesting a less intrusive route of administration
if both routes are prescribed by the provider (PO <
IV).
12/30/24 11:49
Fentanyl Citrate/Pf [Sublimaze] 100 mcg .ROUTE .STK-MED ONE
12/30/24 11:51
Fentanyl Citrate/Pf [Sublimaze] 50 mcg IV NOW STA
12/30/24 12:06
Portable Chest Xray [CR Chest Portable - 1 View] Urgent
Comment:
Reason For Exam: post chest tube
Reason Study Needs to be Portable: Unable to Transport
12/30/24 12:25
Acetaminophen [Tylenol] 1,000 mg PO Q4HPRN PRN pain pain
Ibuprofen [Motrin] 600 mg PO Q6H PRN pain
Oxycodone [Roxicodone] 5 mg PO Q4H PRN pain
Trazodone [Desyrel] 100 mg PO HSPRN PRN insomnia
12/30/24 12:26
Albuterol [ProAIR HFA INHALER] 2 puff INH R Q4HPRN PRN
Bisacodyl [Dulcolax] 10 mg RECTAL DAILYPRN PRN
HYDROmorphone [Dilaudid] 0.25 mg IV Q3HPRN PRN
HYDROmorphone [Dilaudid] 0.5 mg IV Q3HPRN PRN
Magnesium Hydroxide [Milk of Magnesia] 30 ml PO BIDPRN PRN
Ondansetron Injectable [Zofran] 4 mg IV Q8HPRN PRN
12/30/24 12:28
Activity As Directed
Activity Level: Out of Bed-Early Mobility
Comment: OOB every 6 hours post arrival to CVICU
Advance Diet as Tolerated As Directed
Goal Diet: Regular
Arterial Line As Directed
Instructions:: - to pressure bag and transducer
- remove 6 hours post-surgery unless receiving vasopressor support
Chest Tube As Directed
Location: left pleural
To suction: Yes
Suction to __ centimeters of water: -20
May ambulate with suction off?: No
INT (Intravenous Needle Therapy) As Directed
Intake/ Output As Directed
Frequency: Per unit guidelines
Pneumatic Compression Sleeves As Directed
Type: Knee high
Vital Signs As Directed
Frequency: Per unit guidelines
Weight As Directed
Frequency: Daily
Wound Care As Directed
Location of Wound: left chest
Treatment of Wound: -If Dermabond used, leave incision open to air
O2 Therapy [RESP] Routine
Titrate/Wean O2 to maintain O2 sat greater than (%): 90
Special Instructions: - place patient on humidified nasal cannula if needed to keep pulse oximetry > / = 90%
- wean nasal cannula by 2 liters per minute every 2 hours until on room air
-maintain pulse ox greater than 90%
Rx Incentive Spirometry [RESP] Routine
Frequency: q1h while awake
# of times per hour: 10
Rx Pep / Acapela [RESP] Routine
Special Instructions: Q1 hour while patient is awake
DX Deep Vein Thrombosis Video Routine
12/30/24 12:38
Cyclobenzaprine HCl [Flexeril] 5 mg PO Q8HPRN PRN muscle spasm
12/30/24 13:00
METFORMIN HCl [Glucophage] 500 mg PO BID AT 0800,1700
12/30/24 16:00
Gabapentin [Neurontin] 100 mg PO TID
12/30/24 18:00
Enoxaparin Sodium [Lovenox] 40 mg SC QPM
12/30/24 20:00
Sennosides [Senokot] 8.6 mg PO BID
12/30/24 22:00
Atorvastatin [Lipitor] 10 mg PO HS
12/31/24 06:00
Basic Metabolic Panel IN AM
Complete Blood Count/No Diff IN AM
Magnesium IN AM
CR Chest Portable - 1 View DAILY
Comment:
Reason For Exam: f/u pneumothorax
Reason Study Needs to be Portable: Unable to Transport
12/31/24 08:00
Ascorbic Acid [Vitamin C] 1,000 mg PO DAILY
Lidocaine [Lidocaine 4% Patch] See Protocol TOPICAL DAILY
Apply Lidocaine patch(s) to:: the back on the surgical side
Polyethylene Glycol Powder [Miralax] 17 grams PO DAILY
01/01/25 06:00
CR Chest Portable - 1 View DAILY
Comment:
Reason For Exam: f/u pneumothorax
Reason Study Needs to be Portable: Unable to Transport
Abnormal Lab Results
12/30/24
10:57
MCHC 32.4 L g/dL
(33.0-37.0)
Abs Immat Gran (auto) 0.1 H 10^3/uL
(0-0.05)
Absolute Neuts (auto) 9.1 H 10^3/uL
(1.4-6.5)
Absolute Lymphs (auto) 1.0 L 10^3/uL
(1.2-3.4)
Immature Gran % 0.8 H %
(0-0.5)
Neutrophils % 85.6 H %
(42.2-75.2)
Lymphocytes % 9.0 L %
(20.5-51.1)
Glucose 173 H mg/dl
(70-99)
12/30/24 10:57
12/30/24 10:57
Vital Signs
Initial and Last Documented VS:
Initial Vital Signs
Temp Pulse Resp BP Pulse Ox
36.9 C 95 16 169/90 93
12/30/24 10:32 12/30/24 10:32 12/30/24 10:32 12/30/24 10:32 12/30/24 10:32
Last Documented Vital Signs
Temp Pulse Resp BP Pulse Ox
36.9 C 98 18 188/85 95
12/30/24 10:32 12/30/24 12:00 12/30/24 12:03 12/30/24 12:00 12/30/24 12:00
*Pulse Oximetry
SaO2: 93
Oxygen Mode of Delivery: Room air
Patient hypoxic: yes (Patient is transiently hypoxic when he lays back flat while in CT)
*Critical Care Note
Total Time (30-74mins, 75-104mins- exclusive of procedures): Not Applicable
ED Attending Note
-
Portions of this chart may have been created with voice recognition software.� Occasional wrong word or��sound alike� substitutions may have occurred due to the inherent limitations of voice recognition software.
Discharge Plan
Departure
Patient Disposition: Admit
Date of Disposition: 12/30/24
Time of Disposition: 11:00
Presentation/result/management discussed w/ accepting MD/DO: dr waters
Discharge Problem:
Emphysema (subcutaneous) (surgical) resulting from a procedure
Interventions
Interventions:
*Risk Screen - Suicide Last Done: 12/30/24 10:32
*General Assessment Last Done: 12/30/24 11:02
*Neglect/Abuse Screening Last Done: 12/30/24 10:32
*ED- Fall Risk Assessment Last Done: 12/30/24 11:02
*ED COVID-19 Vaccine History Last Done: 12/30/24 11:02
*ED Influenza Vaccine History Last Done: 12/30/24 11:02
*Nursing Disposition Last Done: 12/30/24 12:08
ED- Cardiac Assessment Last Done: 12/30/24 11:03
ED- Pulmonary Assessment Last Done: 12/30/24 11:03
ED-Skin Assessment Last Done: 12/30/24 11:03
Discharge Date and Time
Discharge Date/Time: 12/30/24 12:20
[2024-12-30 11:03] LABS: Hematocrit 46.6 % (39.0-52.0); Hemoglobin 15.1 g/dL (13.0-18.0); Mean Corp Hgb Conc. 32.4 g/dL (33.0-37.0); Mean Corpuscular Volume 86.3 fL (80.0-94.0); Nucleated Red Blood Cells % 0 % (-); Platelet Count 266 10^3/uL (130-400); Red Cell Dist. Width 12.4 % (11.5-14.5)
[2024-12-30 11:20] LABS: Blood Urea Nitrogen 18 mg/dl (9-20); Calcium 9.4 mg/dl (8.4-10.2); Carbon Dioxide 29 mmol/L (22-30); Chloride 104 mmol/L (98-107); Glucose 173 mg/dl (70-99); Potassium 4.5 mmol/L (3.5-5.1); Sodium 140 mmol/L (135-145); eGFR > 60.00
[2024-12-30] MEDS: SUBLIMAZE 50 MCG IV (11:51)
--- NOTE | 2024-12-30 12:17 | W.PN.UPDATE ---
Update Note
Progress Note Update
CARDIAC SURGERY ATTENDING: Procedure Note
LEFT TUBE THORACOSTOMY
INDICATION FOR PROCEDURE
Mr. Jose Lr is a very pleasant 69 y/o gentleman, well-known to our service. He is s/p robotic assisted LULobectomy & mediastinal LN dissection on 12/26/2024. His POC was uneventful and he was discharged home on 12/28/2024. He was progressing
well at home. Last evening he used his home CPAP and this AM awoke with worsening swelling in B/L neck (L>R). He was advised to present to the ED for evaluation. CXR demonstrated marked widespread diffuse B/L subcutaneous emphysema (L >R) w/
progression when compared to prior, but no clearly identified PTX. A CT-C non-contrast was then obtained that demonstrated extensive subcutaneous emphysema, pneumomediastinum, and at least moderate LEFT pneumothorax w/o mediastinal shift. The
patient was advised to undergo bedside tube thoracostomy - informed consent obtained.
DETAILS OF PROCEDURE:
Time-out performed. LEFT chest wall prepped and draped in standard, sterile fashion. Area infiltrated w/ approximately 12mL of 1% lidocaine w/ epinephrine. Incision made at approximately 7th ICS anterior axillary line and tracked cephalad and
posterior to ~ 6th intercostal space. LEFT hemithorax entered w/o incident; + choudhury of air. Area of entry free from any palpable adhesions. 24Fr straight CT advanced without resistance to apex of LEFT hemithorax, CT rotated w/o resistance.
Connected to Pleur-evac at -[id number] wall suction. CT secured in position. Dressing applied. Post-procedure CXR obtained w/ CT in good position. Pt. tolerated procedure well. Admission to CVICU arranged for ongoing monitoring and CT management.
Ming Aguirre M.D.
[phone]
--- NOTE | 2024-12-30 12:33 | HPS.HSE ---
Family Physician
-
Family Physician: NOT KNOW UNKNOWN - PT DOES
Chief Complaint
-
Neck Swelling
History of Present Illness
Mr. Lr is a 69-year-old male who is well-known to our service. He underwent robotic assisted left upper lobectomy with radical lymph node dissection by Dr. Lawson on 12/26/2024. His postoperative course was essentially uncomplicated. His chest
tubes removed on postoperative day #2. At that time there was some mild subcutaneous emphysema noted however there was no pneumothorax and thus the patient was discharged to home. Patient contacted me this morning with complaints of worsening neck
swelling. This had progressed to both sides of his neck and there was noticeable change in his voice. I prompted him to emergently come to the hospital for evaluation where chest x-ray on admission showed extensive bilateral subcutaneous emphysema
which are clearly progressed since discharge. I was unable to discern if there was a pneumothorax on this film. Noncontrast CT chest and neck revealed a moderate to large left pneumothorax, pneumomediastinum, and extensive subcutaneous emphysema
consistent with his chest x-ray. He is hypoxic requiring oxygen. Given these findings he has indications for emergent chest tube placement as well as admission to an ICU for airway watch given his subcutaneous emphysema and potential for airway
compromise.
Medical History
Past Medical History
Past Medical History: Reports Other
Additional Past Medical History:
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
Obstructive sleep apnea on CPAP
COPD
Diabetes mellitus
Hyperlipidemia
Cataracts
Past Surgical History: Reports Other
Additional Past Surgical History:
Robotic assisted left upper lobectomy with radical lymph node dissection on 12/26/[address] Lawson
Bilateral cataracts
Social History
Tobacco: Former Smoker
Alcohol: None
Drug: None
Personal:
Living: With Family
Family History
Family History: CAD
Allergies / Home Medications
Allergies reflects when Allergies were last updated in [facility].
Home Medications with original date entered in [facility]
Allergy/Medication List:
No known allergies
Review of Systems
-
History Source: Patient and Family
A 12 point ROS was completed and negative except as noted: Yes
EENT: Reports Mouth Swelling and Other (Voice change)
Respiratory: Reports Cough and Trouble Breathing
Physical Exam
Vital Signs
Vital Signs
Temp Pulse Resp BP Pulse Ox
98.4 F 98 18 188/85 95
12/30/24 10:32 12/30/24 12:00 12/30/24 12:03 12/30/24 12:00 12/30/24 12:00
Physical Exam
General: Well Developed, Well Nourished and Respiratory Distress (Tripoding)
HEENT: NormoCephalic and Anicteric
Respiratory: Decreased Breath Sounds (Decreased breath sounds in the left, crackles throughout)
Cardiac: S1/S2 and Regular Rhythm
GI: Soft, Non Tender and Non Distended
Genito-urinary: Deferred by me
Musculoskeletal: No Cyanosis
Skin: Warm and Dry
Neuro: AO x 3
Psych: Calm
Laboratory Results
-
12/30/24 10:57
12/30/24 10:57
Data Reviewed
-
Diagnostic Radiology: Image Personally Visualized and interpreted
CT Scan: Image Personally Visualized and interpreted
Lab Data: Labs Reviewed by me
Old Records: Reviewed
Impression/Plan
-
IMPRESSION:
Progression of previously documented subcutaneous emphysema, moderate to large left pneumothorax, pneumomediastinum, potential for airway compromise
Status post left upper lobectomy with radical lymph node dissection by Dr. Lawson
PLAN: Emergent left chest tube will be placed at the bedside by Dr. Jimenez. This will be placed to suction at -20 cm. I reviewed extensively the nature of the patient's condition with him and his family, explained the rationale behind
emergent chest tube placement, and explained that he would require admission to an ICU for airway watch given his voice change and progression of subcutaneous emphysema into his neck. It is likely that the pneumomediastinum is related to the
extension of this subcutaneous emphysema as he has no history of retching or vomiting and has no evidence of esophageal perforation on CT. This will need to be watched closely. Daily chest x-rays. It was difficult to discern whether or not a
pneumothorax was present on plain film given the emphysema. May need more formal imaging with PA and lateral chest x-ray to monitor for pneumothorax daily. Will discuss. Multimodal pain control be utilized following chest tube placement.
Patient admitted to CVICU. Discussed with the ED team.
[2024-12-30] MEDS: DILAUDID 0.5 MG IV ×3 (12:47→21:56)
--- NOTE | 2024-12-30 13:00 | PTCARENOTE ---
left upper lobectomy with radical lymph node dissection by Dr. Lawson on 12/26/2024. pt returned to ED w/ complaints of worsening neck swelling; on both sides of the neck w/ voice changes; L mediastinal CT p;laced in ED w/ Dr Aguirre. Arrived to CVICU
@ 1200 AAOx4 w/ complaints of pain; VSS ST on monitor; 2L NC for comfort; GI and WNL; PIV's wnl; L CT sights w/ sangunious discharge; see worklist for detailed assessment.
[2024-12-30] MEDS: GLUCOPHAGE 500 MG PO ×2 (15:09→17:12)
[2024-12-30] MEDS: ROXICODONE 5 MG PO ×2 (15:09→20:11)
[2024-12-30] MEDS: TYLENOL 1000 MG PO (15:09)
[2024-12-30] MEDS: NEURONTIN 100 MG PO ×2 (15:09→21:55)
[2024-12-30] MEDS: LOVENOX 40 MG SC (17:12)
[2024-12-30] MEDS: NOVOLOG FLEXPEN-MODERATE RESISTANCE 1 UNITS SC (19:02)
[2024-12-30 19:04] LABS: Glucose - Point of Care 187 mg/dl (70-99)
[2024-12-30] MEDS: REMOVE LIDOCAINE PATCH REMOVE (20:11)
[2024-12-30] MEDS: SENOKOT 8.6 MG PO (20:12)
[2024-12-30] MEDS: LIPITOR 10 MG PO (21:55)
[2024-12-30] MEDS: DESYREL 100 MG PO (22:13)
[2024-12-30 22:22] LABS: Glucose - Point of Care 262 mg/dl (70-99)
--- NOTE | 2024-12-30 22:55 | PTCARENOTE ---
Assumed care of patient at 1900. Patient found oob in chair at time of assessment. Patient is AOx4, follows commands appropriately, moves all extremities. Lung sounds are diminished at the right, crackles throughout out the left, saO2 92% on RA,
CTx1 L lateral pleural draining serosang to atrium. There is a +2 air leak to atrium and crepitus is present diffusely through the patient's left side from neck to abdomen. Heart sounds are audible, patient is ST with first deg AV block and
occasional PVCs on the monitor. Patient with ~15 minutes of 2nd deg type 1 at change of shift before spontaneously converting to original rhythm. CT BARBER [employer] MANAGER notified and lytes are pending. Patient has normal palpable pulses and trace pedal edema. Patient
has active BS throughout all four quadrants of obese round abdomen and voids in the urinal. Patient has 4x4 gauze dressing over old CT wound site.There is a 4x4 gauze dressing over current CT site that has red sanguineous drainage present. Patient
has 3xlateral chest incision approx with surg adhesive [employer]. There is an 18G in R FA and 18G L AC. VSS. Anum 5 for pain. Call [facility] within reach.
[2024-12-30 22:56] LABS: Blood Urea Nitrogen 18 mg/dl (9-20); Calcium 9.7 mg/dl (8.4-10.2); Carbon Dioxide 27 mmol/L (22-30); Chloride 103 mmol/L (98-107); Estimated Creatinine Clearance 125 ml/min; Glucose 279 mg/dl (70-99); Magnesium 2.0 mg/dl (1.6-2.3); Potassium 4.3 mmol/L (3.5-5.1); Sodium 134 mmol/L (135-145); eGFR > 60.00
[2024-12-31] VITALS (7 sets, daily range): BP systolic 118–159; BP diastolic 62–97; BMI 35.0
--- NOTE | 2024-12-31 | PTCARENOTE ---
Patient reassessed. SR on the monitor with occasional PVCs. Given dilaudid HS for pain. While sleeping patient began desatting d/t efrain placed on 6L saO2 remains in mid to high 80s. CT TEMP RECRUITER notified. Patient placed on CPAP by RT with setting 10 with 6L
saO2 95%. Call [facility] within reach.
--- NOTE | 2024-12-31 00:47 | W.PN.CT ---
Today's Communication / Plan
-
Left CT inserted (CT to �20cm�suction); improvement with�subcutaneous�air�
Follow daily Xray�
Assessment / Plan
-
�s/p Robotic�assisted�left upper lobectomy and Mediastinal lymph node dissection by Dr. Lawson on 12/26/24, pod #4�
Readmitted�on 12/30 for B/L neck swelling�and voice changes; found to have B/L�subcutaneous�emphysema (CT�showed moderate left�pneumothorax�w/o mediastinal shift), left chest tube placed
-
Past Medical History
Diabetes II (A1C 6.3)�
Hyperlipidemia�
Former smoker/COPD�
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
Chronic L hip pain, uses Roxicodone�5 mg�2-3 times/day�
NICOLE�
b/l�cataract extractions with IOL�
Preop 1st degree AVB�
Subjective
Procedure
s/p Robotic�assisted�left upper lobectomy and Mediastinal lymph node dissection by Dr. Lawson on 12/26/24
-
Date of Service: December 31, 2024
Objective Data
Vital Signs
Vital Signs
Temp Pulse Resp BP Pulse Ox
97.8 F 91 12 145/85 88
12/31/24 00:00 12/30/24 21:00 12/31/24 00:00 12/30/24 20:15 12/31/24 00:00
CT Intake/Output/Weight
12/30/24 12/30/24 12/31/24
06:59 18:59 06:59
Output Total 995 / 1255 260 / 1255
Balance -995 / -1255 -260 / -1255
SaO2: 88
Physical Exam
-
General: Awake
Cardiovascular: Regular rate & rhythm
Respiratory: Clear and Equal
Sternum: Stable
Incision: Clean, Dry and Intact
Extremities: Edema +1
[2024-12-31] MEDS: DILAUDID 0.5 MG IV ×3 (03:59→13:18)
[2024-12-31 04:44] LABS: Hematocrit 44.6 % (39.0-52.0); Hemoglobin 14.1 g/dL (13.0-18.0); Mean Corp Hgb Conc. 31.6 g/dL (33.0-37.0); Mean Corpuscular Volume 86.6 fL (80.0-94.0); Platelet Count 239 10^3/uL (130-400); Red Cell Dist. Width 12.5 % (11.5-14.5)
[2024-12-31 05:04] LABS: Blood Urea Nitrogen 16 mg/dl (9-20); Calcium 9.2 mg/dl (8.4-10.2); Carbon Dioxide 29 mmol/L (22-30); Chloride 104 mmol/L (98-107); Estimated Creatinine Clearance 125 ml/min; Glucose 208 mg/dl (70-99); Magnesium 2.1 mg/dl (1.6-2.3); Potassium 4.5 mmol/L (3.5-5.1); Sodium 137 mmol/L (135-145); eGFR > 60.00
--- NOTE | 2024-12-31 05:44 | PTCARENOTE ---
Addendum entered by Rashawn Hernandez RN 12/31/24 06:09:
Neck swelling appears improved from yesterday. However, there is new eye swelling present that was not there at start of shift.
Original Note:
Patient reassessed. Remains SR with first deg AV block on the monitor. AM labs obtained. Neck size measured in AM at 58.5cm. Place on 6L via NC after patient wanted CPAP removed.
[2024-12-31 07:57] LABS: Glucose - Point of Care 173 mg/dl (70-99)
[2024-12-31] MEDS: NOVOLOG FLEXPEN-MODERATE RESISTANCE 1 UNITS SC ×3 (07:57→17:38)
[2024-12-31] MEDS: MIRALAX PO (08:47)
[2024-12-31] MEDS: SENOKOT 8.6 MG PO ×2 (08:51→20:14)
[2024-12-31] MEDS: NEURONTIN 100 MG PO ×3 (08:51→21:46)
[2024-12-31] MEDS: TYLENOL 1000 MG PO ×2 (08:51→15:22)
[2024-12-31] MEDS: GLUCOPHAGE 500 MG PO ×2 (08:51→17:36)
[2024-12-31] MEDS: VITAMIN C 1000 MG PO (08:51)
[2024-12-31] MEDS: ROXICODONE 5 MG PO ×4 (08:52→21:50)
[2024-12-31] MEDS: LIDOCAINE 4% PATCH 1 PATCH TOPICAL (08:53)
--- NOTE | 2024-12-31 09:03 | PTCARENOTE ---
assumed care of pt from previous shift RN, sinus rhythm on tele, VSS, pox 96% on RA, coughing and deep breathing encouraged. +bs, tolerating PO intake, pt reports +BM, voids spontaneously. Ecchymosis noted to left lateral back w pleural CT
maintained to suction, +2 air leak, + crepitus to left back/arm/neck/face. pt medicated for pain. plan of care reviewed and questions encouraged.
--- NOTE | 2024-12-31 11:33 | CM ---
Chart reviewed. Patient was readmitted for a pneumothorax. Patient is independent of ADLS, lives alone in a 1 [facility], 2 [facility], has a SPC at home. Patient with a chest tube to suction. Plan is for the patient to return home with CT Transitional RN.
CM to follow
[2024-12-31 11:45] LABS: Glucose - Point of Care 157 mg/dl (70-99)
--- NOTE | 2024-12-31 11:48 | PTCARENOTE ---
VSS, pt ambulating in room with CT connected to suction. +2 air leak maintained.
[2024-12-31] MEDS: LOVENOX 40 MG SC (17:36)
[2024-12-31 17:38] LABS: Glucose - Point of Care 181 mg/dl (70-99)
[2024-12-31] MEDS: FLEXERIL 5 MG PO (17:46)
--- NOTE | 2024-12-31 20:00 | PTCARENOTE ---
Assumed care of patient from prior RN. Patient alert and oriented OOB to chair. Vital signs stable, normal Sinus on monitor heart rate in 80's, pulse ox 96% on RA, +bs, tolerating PO intake ate 100% of dinner tray, voids spontaneously, ambulates
in room without assistance, slight limp noted. Ecchymosis area left lateral back and flank w pleural CT to suction, +2 air leak noted , + crepitus to left back, chest, arm and neck, crepitus in improving overall.
[2024-12-31] MEDS: REMOVE LIDOCAINE PATCH 1 PATCH REMOVE (20:13)
[2024-12-31] MEDS: DESYREL 100 MG PO (21:46)
[2024-12-31] MEDS: LIPITOR 10 MG PO (21:47)
--- NOTE | 2024-12-31 22:26 | PTCARENOTE ---
Vital signs stable, Chest tube dressing saturated sanguis drainage and unsecured. Site cleaned and dressing changed. PRN pain medication given for 7/10 left chest/flank pain at CT site. Patient voided clear yellow moderate amount. pain improved
after medication.
[2025-01-01] VITALS (10 sets, daily range): BP systolic 116–156; BP diastolic 59–103; PULSE 97; BMI 35.0
--- NOTE | 2025-01-01 03:50 | W.PN.CT ---
Today's Communication / Plan
-
Plan:
-Pt is on -20 cmh2o wall suction with continuous air leak
-SQ emphysema noted primary on the left side on CXR this AM, cannot appreciate a left ptx given substantial SQ emphysema. F/U official report
-Will discuss chest tube to suction vs water seal
-OOB into chair/Ambulate�
Assessment / Plan
-
�s/p Robotic�assisted�left upper lobectomy and Mediastinal lymph node dissection by Dr. Lawson on 12/26/24, pod #6�
Readmitted�on 12/30 for B/L neck swelling�and voice changes; found to have B/L�subcutaneous�emphysema (CT�showed moderate left�pneumothorax�w/o mediastinal shift), left chest tube placed
-
Past Medical History
Diabetes II (A1C 6.3)�
Hyperlipidemia�
Former smoker/COPD�
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
Chronic L hip pain, uses Roxicodone�5 mg�2-3 times/day�
NICOLE�
b/l�cataract extractions with IOL�
Preop 1st degree AVB�
Discussed patient care with: Cardiology, Nursing, Respiratory Therapy, Pharmacy and Care Team
Subjective
Procedure
s/p Robotic�assisted�left upper lobectomy and Mediastinal lymph node dissection by Dr. Lawson on 12/26/24
-
Date of Service: January 01, 2025
Pt c/o voice being hoarse from SQ emphysema, otherwise feels well. Denies SOB
Objective Data
-
Lab Results
12/31/24 04:33
12/31/24 04:33
Vital Signs
Vital Signs
Temp Pulse Resp BP Pulse Ox
99 F 76 20 149/62 91
12/31/24 21:30 12/31/24 23:00 12/31/24 21:30 12/31/24 21:54 12/31/24 23:00
CT Intake/Output/Weight
12/31/24 12/31/24 01/01/25
06:59 18:59 06:59
Intake Total 200 / 200
Output Total 430 / 1425 50 / 50
Balance -430 / -1425 -50 / 150 200 / 150
SaO2: 91 (RA)
Physical Exam
-
General: Awake, Oriented and AOx3
Cardiovascular: Regular rate & rhythm, No Murmurs, No Rub and No Gallop
Respiratory: Decreased Breath Sounds (on left)
Incision: Clean, Dry, Intact and Dressing Intact
Extremities: Other (+crepitus on face, neck, L shoulder/back, L chest )
Data Reviewed
-
Lab Results: Results Reviewed
Medications: Active Meds Reviewed
Chest X-Ray: Report Reviewed and Image Reviewed
ECG: Report Reviewed and Image Reviewed
[2025-01-01] MEDS: TYLENOL 1000 MG PO ×2 (05:30→13:01)
[2025-01-01] MEDS: FLEXERIL 5 MG PO ×2 (05:30→21:44)
[2025-01-01] MEDS: DILAUDID 0.25 MG IV ×3 (05:32→13:01)
--- NOTE | 2025-01-01 07:47 | PTCARENOTE ---
vital signs captured from nightshift RN.
[2025-01-01] MEDS: NOVOLOG FLEXPEN-MODERATE RESISTANCE 1 UNITS SC ×3 (07:59→18:14)
[2025-01-01 08:00] LABS: Glucose - Point of Care 175 mg/dl (70-99)
--- NOTE | 2025-01-01 08:09 | PTCARENOTE ---
assumed care of pt from previous shift RN, sinus rhythm on tele w 1st degree HB, + peripheral pulses, trace edema noted. Right lung diminished, left w CT in place,+ crepitus and +2 air leak. +bs, tolerating PO intake. Voiding spontaneously. PIV x2
flush easily. Surgical sites stable. Ecchymosis to left lateral chest. Plan of care reviewed w the pt and questions encouraged.
[2025-01-01] MEDS: LIDOCAINE 4% PATCH 1 PATCH TOPICAL (08:47)
[2025-01-01] MEDS: NEURONTIN 100 MG PO ×3 (08:48→21:44)
[2025-01-01] MEDS: VITAMIN C 1000 MG PO (08:48)
[2025-01-01] MEDS: SENOKOT 8.6 MG PO ×2 (08:48→19:08)
[2025-01-01] MEDS: GLUCOPHAGE 500 MG PO ×2 (08:48→17:00)
[2025-01-01] MEDS: ROXICODONE 5 MG PO ×4 (08:48→22:49)
[2025-01-01] MEDS: MIRALAX PO (08:57)
--- NOTE | 2025-01-01 10:39 | PTCARENOTE ---
CT placed on H20 seal by Dr. Lawson.
--- NOTE | 2025-01-01 11:28 | CM ---
Chart reviewed. Patient is independent of ADLS, lives alone in a 1 [facility], 2 [facility], has SPC at home if needed. Patient with CT to H2O seal, waiting on repeat CXR. Plan is for the patient to return home with CT Transitional RN. CM to follow
[2025-01-01 12:00] LABS: Glucose - Point of Care 165 mg/dl (70-99)
--- NOTE | 2025-01-01 15:00 | PTCARENOTE ---
Handoff repot received from Tory Mullen RN. Patient OOB in chair at this time, VSS. Pt states pain is manageable at this time. Independent with ambulating. L chest tube to h2O seal with +3 airleak, tidaling and crepitus across L flank, arm/hand, chest
and abdomen. surgical sites glued with sutures intact and PODIATRIC TECHNICIAN, lower flank ecchymotic. IS done independently up to 1000. All needs met at this time, call [facility] within reach.
--- NOTE | 2025-01-01 15:01 | CON.CAR ---
Addendum entered and electronically signed by Mukund Bhakta MD 01/01/25 17:19:
I saw and evaluated the patient, and I provided the substantive portion of the medical decision making.
I reviewed and agree with the note by Dr Verma and it accurately reflects our care.
I personally performed the medical decision making of the this encounter and my assessment and plan is below:
69 yo M PMH HLD, COPD, DM, NICOLE on CPAP, medullary thyroid carcinoma with mets to left hip, Cataracts, s/p lung lobectomy + radical lymph node dissection (postop day #6) p/w subq emphysema and found to have telemetry arrhythmias as specified below.
Discussed tele findings with EP, DR Baez, and he had brief A fib and converted to SR. Additionally, he is have frequent PACs and PVCs.
- recommend metop tart 25 mg bid and amio 400 bid while inpt then 200 mg daily afterwards
Original Note:
Consultation
Consultation Request
Date/Time Consultation Requested: 01/01/2025; 14:49
Date/Time Consultation Performed: 01/01/2025; 15:00
Requesting Provider: Tamar Cabrera
Performing Provider: Dr. Mukund Bhakta; Dr. Josr Verma
Reason for Consultation: arrhythmia
Medical History
-
Chief Complaint: arrhythmia
History of Present Illness:
69 yo M who underwent left upper lobectomy with radial lymph node dissection on 12/26/[address] Lawson and had a generally uncomplicated postop course. He was discharged home but then experienced neck swelling bilaterally with voice changes
prompting him to return to ED on 12/30/2024. Admission chest x-ray on admission showed extensive bilateral subcutaneous emphysema which are clearly progressed since dischargeCT chest/neck revealed a moderate to large left pneumothorax,
pneumomediastinum, and extensive subcutaneous emphysema. He had a chest tube placed and was admitted to the CVICU.
Cardiology has been consulted because the patient, per consult documentation, is experiencing potential SVT and dropped beats. The ORAL PATHOLOGIST notes that in his prior admission (just 6-7 days ago), the patient experienced similar intermittent arrhythmias.
During my interview, the patient reports feeling well. He has a chest tube in place. He denies dizziness, chest pain, palptiations, presyncope.
He also denies excess drooling. but does endorse that his voice is more nasal due to swelling in chest/neck.
Other ROS: denies headache, abdominal pain, focal weakness.
When interviewing with Dr. Bhakta, the patient experienced more PVCs, PACs, and potentially blocked PACs after reviewing the telemetry with Dr. Baez.
PMH: Medullary thyroid carcinoma with mets to left hip, Obstructive sleep apnea on CPAP, COPD, Diabetes mellitus, Hyperlipidemia, Cataracts
Past Medical History
Past Medical History: Other (Medullary thyroid carcinoma with mets to left hip, Obstructive sleep apnea on CPAP, COPD, Diabetes mellitus, Hyperlipidemia, Cataracts)
Past Surgical History: Other (Robotic assisted left upper lobectomy with radical lymph node dissection on 12/26/[address] Lawson Bilateral cataracts)
Social History
Tobacco: Former Smoker
Alcohol: None
Drug: None
Personal:
Living: With Family
Allergies / Home Medications
Allergy/AdvReac Type Severity Reaction Status Date / Time
No Known Allergies Allergy Verified 12/30/24 10:31
�Medication �Instructions �Recorded �Confirmed �Type
atorvastatin 10 mg tablet 10 mg PO HS High Cholesterol 11/21/24 12/30/24 History
metformin 500 mg tablet 500 mg PO BIDWMEAL Diabetes 11/21/24 12/30/24 History
acetaminophen 500 mg tablet 1,000 mg PO DAILY Pain 11/26/24 12/30/24 History
ascorbic acid (vitamin C) 500 mg 1,000 mg PO DAILY Supplement 11/26/24 12/30/24 History
tablet (Vitamin C)
ibuprofen 200 mg tablet (Advil) 600 mg PO Q6H PRN pain 11/26/24 12/30/24 History
Held on 12/28/24.
Instructions: Resume on
01/18/25.
trazodone 100 mg tablet 100 mg PO HS PRN insomnia 12/14/24 12/30/24 History
zinc 1 tab PO DAILY Supplement 12/14/24 12/30/24 History
oxycodone 5 mg tablet 5 mg PO Q4H PRN pain 12/27/24 12/30/24 History
cyclobenzaprine 10 mg tablet 5 mg (1/2 x 10 mg) PO Q8HPRN PRN 12/28/24 12/30/24 Rx
muscle spasm #30 tabs
gabapentin 100 mg capsule 100 mg PO TID post-op pain #60 caps 12/28/24 12/30/24 Rx
Review of Systems
-
History Source: Patient
Constitutional: No Symptoms
EENT: No Symptoms
Respiratory: No Symptoms
Cardiac: No Symptoms
Abdomen/GI: No Symptoms
: No Symptoms
Musculoskeletal: No Symptoms
Skin: Other (swelling of upper chest, neck)
Physical Exam
Vital Signs
Temp Pulse Resp BP Pulse Ox
98.2 F 83 16 146/71 95
01/01/25 12:03 01/01/25 12:03 01/01/25 12:03 01/01/25 12:03 01/01/25 09:03
telemetry review:
Review of [address] Baez and Dr. Bhakta disclosed atrial fibrillation, believed postop
Review of 2nd telemetry strip with Dr. Baez and Dr. Bhakta disclosed PVCs, PACs, and blocked PACs
VS otherwise wnl
He spontaneously reverts to NSR, HR in 70-80s
Lab Results
12/31/24 04:33
12/31/24 04:33
Physical Exam
General: Comfortable
HEENT: Normocephalic
Respiratory: Clear and Other (subq crepitus appreciated)
Cardiac: Other (no murmurs on my exam)
GI: Soft
Musculoskeletal: No Edema
Skin: Warm
Neuro: AO x 3, No Motor Deficits and Nonfocal/Grossly Intact
Psych: Calm
Impression / Plan
-
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
specified below.
# Tachycardia with PVCs, PACs, and blocked PACs
# Postoperative atrial fibrillation
- Reassuringly, the patient remained hemodynamically stable during all the episodes, and is even able to ambulate while carrying his chest tube device with him.
- He continues to deny symptoms of presyncope, palpitations or any pain
- review of the telemetry strips with Dr. Baez and Dr. Bhakta
- It was decided that he experienced atrial fibrillation (attributed to postop/procedure) during one instance
- It was decided that he experienced intermittent runs of PVCs, PACs, and blocked PACs with tachycardia during another instance
- After discussion with Dr. Baez and Dr. Bhakta, the following medications are suggested
- Amiodarone 400mg bid
- Metoprolol tartrate 25mg bid
- However, recommendations are not final until discussed with Dr. Bhakta, cardiology attg
[2025-01-01 17:51] LABS: Glucose - Point of Care 180 mg/dl (70-99)
[2025-01-01] MEDS: LOVENOX 40 MG SC (18:15)
--- NOTE | 2025-01-01 19:00 | PTCARENOTE ---
Patient remains stable at this time with VSS. Independent with freuqent walks and IS use. PRN colette given for pain around 1800. +3 airleak, tidaling and crepitus remains, CTS team are aware. All needs met at this time, call [facility] within reach. handoff
report given to nightshift RN.
[2025-01-01] MEDS: LOPRESSOR 25 MG PO (19:08)
[2025-01-01] MEDS: PACERONE 400 MG PO (19:09)
[2025-01-01] MEDS: REMOVE LIDOCAINE PATCH 1 PATCH REMOVE (20:20)
--- NOTE | 2025-01-01 20:28 | PTCARENOTE ---
Assumed care of pt from previous shift RN, OOB to chair, sinus rhythm on tele, VSS, 98.4 temp, pox 97% on RA, +BS, tolerating PO intake 100 % of dinner, voids spontaneously. Ecchymosis to left lateral back w pleural CT maintained to water seal +2
air leak, + crepitus to left back/arm/neck/face seems improved .
[2025-01-01] MEDS: MOTRIN 600 MG PO (21:43)
[2025-01-01] MEDS: DESYREL 100 MG PO (21:43)
[2025-01-01] MEDS: LIPITOR 10 MG PO (21:44)
[2025-01-01 21:55] LABS: Glucose - Point of Care 214 mg/dl (70-99)
[2025-01-02] VITALS (10 sets, daily range): BP systolic 126–145; BP diastolic 70–83; PULSE 70–74
--- NOTE | 2025-01-02 00:25 | PTCARENOTE ---
Patient received from CVICU, AAOx3, offers no complaints.NSR with PACs,PVCs,afebrile, blood pressure as documented. palpable pulses, trace lower extremity edema. Lungs diminished, left lateral CT to water seal, + air leak, + crepitus left face,
left chest, left arm. pulse ox 95% on room air. Abdomen round with hypoactive bowel sounds. Voiding. Left lateral previous incisions approximated,open to air. Large amount of ecchymosis on abdomen. #18 g in R arm,#18 g left arm both flushed
and patent
[2025-01-02 04:51] LABS: Hematocrit 44.5 % (39.0-52.0); Hemoglobin 14.0 g/dL (13.0-18.0); Mean Corp Hgb Conc. 31.5 g/dL (33.0-37.0); Mean Corpuscular Volume 89.2 fL (80.0-94.0); Platelet Count 244 10^3/uL (130-400); Red Cell Dist. Width 12.3 % (11.5-14.5)
[2025-01-02 05:04] LABS: Blood Urea Nitrogen 18 mg/dl (9-20); Calcium 9.0 mg/dl (8.4-10.2); Carbon Dioxide 29 mmol/L (22-30); Chloride 106 mmol/L (98-107); Estimated Creatinine Clearance 108 ml/min; Glucose 181 mg/dl (70-99); Potassium 4.2 mmol/L (3.5-5.1); Sodium 137 mmol/L (135-145); eGFR > 60.00
[2025-01-02] MEDS: DILAUDID 0.25 MG IV (06:01)
--- NOTE | 2025-01-02 06:30 | DOWNTIME ---
There was a [employer] Access Coordinator Downtime on 01/02/2025 from 0100 to 01/02/2025 at 0215. Downtime documentation of patient's care, including medication administrations, has been reconciled in the electronic record per guidelines. Refer to the
patient's paper chart under the miscellaneous tab to see printed paper medication records and downtime forms.
[2025-01-02 07:13] LABS: Glucose - Point of Care 187 mg/dl (70-99)
[2025-01-02] MEDS: NOVOLOG FLEXPEN-MODERATE RESISTANCE 1 UNITS SC ×2 (07:59→18:10)
--- NOTE | 2025-01-02 08:04 | W.PN.CD ---
Today's Communication / Plan
-
- Plan for Amiodarone for 1 month
- Metoprolol 25 mg BID
Impression / Plan
-
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
specified below.
Adenocarcinoma of upper lobe of left lung
- s/p Robotic�assisted�left upper lobectomy and Mediastinal lymph node dissection by Dr. Lawson on 12/26/24, pod #7
- B/L�subcutaneous�emphysema (CT�showed moderate left�pneumothorax�w/o mediastinal shift), readmitted on 12/30
- Chest tube in place
# Tachycardia with PVCs, PACs, and blocked PACs
# Postoperative atrial fibrillation
- Episodes of brief AF - in post setting
- The post op AF does not need chronic anticoagulation
- Post op AF is associated with development of AF later in life
- Frequent PAC and PVCs noted
- had PAC and PVCs with AIVR immediately post op.
- ECHO 12/28 - Normal LV size and systolic function. Estimated LVEF 55-60%.No significant valve abnormality.
- Suppress PACs and PVCs with Metoprolol and Amiodarone
- Amiodarone as short term solange with lung disease with plan to stop in 1 month
- Plan to continue Metoprolol for stand grinder.
- No significant ectopy present now.
Physical Exam
Vital Signs/Labs
Vital Signs
Temp Pulse Resp BP Pulse Ox
98.9 F 89 16 128/83 95
01/02/25 07:49 01/02/25 07:49 01/02/25 04:34 01/02/25 04:34 01/02/25 07:49
01/01/25 01/02/2525
06:59 06:59 06:59
Actual Weight 107.5 kg
01/02/25 04:31
01/02/25 04:31
Magnesium 2.1 mg/dl (1.6-2.3) 12/31/24 04:33
Physical Exam
Constitutional: Comfortable
EENT: Anicteric and Moist mucous membranes
Cardiovascular: Rhythm & rate is regular, Pedal edema is absent and JVD pressure is normal
Respiratory: Respiratory effort normal, Lungs clear to auscul. and Wheeze Absent
GI: Soft, Non tender and Normal bowel sounds
Neuro/Psych: Alert, Oriented and AO x 3
Data Reviewed
-
Date of Service: January 02, 2025
Medical Decision Making: Reviewed Test Results, Test Interpretation and Review of Case with other Provider
EKG: Tracing Personally Visualized and interpreted
Echo: Report Reviewed by me
X-Ray/CT/US/MRI/NUC/PET: Image Personally Visualized and interpreted
Labs: Labs Reviewed by me
Old Records: Reviewed
--- NOTE | 2025-01-02 08:08 | W.PN.CT ---
Today's Communication / Plan
-
-pod #7
-no significant issues overnight
-L CT on water seal overnight with intermittent air leak during expiration, output 20/40 in 12/24 hrs
-SQ emphysema at the neck b/l, chest b/l (L>R), L shoulder and lateral L chest wall.
-CXR today per Radiology, Stable position of the chest tube in the medial left lung apex. Suspicion for a small left apical pneumothorax, although again limited by the presence of subcutaneous emphysema.No focal consolidation or pleural effusion.
Stable cardiomediastinal silhouette. Chronic degenerative changes of the spine.
-plans for Heimlich valve placement today
-OOB into chair/Ambulate�
Assessment / Plan
-
�s/p Robotic�assisted�left upper lobectomy and Mediastinal lymph node dissection by Dr. Lawson on 12/26/24, pod #7
Readmitted�on 12/30 for B/L neck swelling�and voice changes; found to have B/L�subcutaneous�emphysema (CT�showed moderate left�pneumothorax�w/o mediastinal shift), left chest tube placed
-
Past Medical History
Diabetes II (A1C 6.3)�
Hyperlipidemia�
Former smoker/COPD�
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
Chronic L hip pain, uses Roxicodone�5 mg�2-3 times/day�
NICOLE�
b/l�cataract extractions with IOL�
Preop 1st degree AVB�
Discussed patient care with: Nursing and Care Team
Subjective
Procedure
s/p Robotic�assisted�left upper lobectomy and Mediastinal lymph node dissection by Dr. Lawson on 12/26/24
-
Date of Service: January 02, 2025
Objective Data
-
Lab Results
01/02/25 04:31
01/02/25 04:31
Vital Signs
Vital Signs
Temp Pulse Resp BP Pulse Ox
98.9 F 89 16 128/83 95
01/02/25 07:49 01/02/25 07:49 01/02/25 04:34 01/02/25 04:34 01/02/25 07:49
CT Intake/Output/Weight
01/01/25 01/02/25 01/02/25
18:59 06:59 18:59
Intake Total 100 / 420 320 / 420
Output Total 20 / 40 20 / 40
Balance 80 / 380 300 / 380
SaO2: 95
Physical Exam
-
General: Awake and AOx3
Cardiovascular: Regular rate & rhythm, No Murmurs and No Rub
Respiratory: Rales and Decreased Breath Sounds (palpable subcutaneous emphysema of the neck b/l with voice change, b/l chest (L>R), L arm/shoulder)
Sternum: Stable
Incision: Clean, Dry and Intact
Extremities: Other (trace edema b/l)
Abdomen: soft, nontender, nondistended
Data Reviewed
-
Lab Results: Results Reviewed
Medications: Active Meds Reviewed
Chest X-Ray: Report Reviewed and Image Reviewed
ECG: Report Reviewed and Image Reviewed
[2025-01-02] MEDS: GLUCOPHAGE 500 MG PO ×2 (08:10→16:52)
[2025-01-02] MEDS: NEURONTIN 100 MG PO ×3 (08:10→21:57)
[2025-01-02] MEDS: LOPRESSOR 25 MG PO ×2 (08:10→19:59)
[2025-01-02] MEDS: VITAMIN C 1000 MG PO (08:10)
[2025-01-02] MEDS: SENOKOT 8.6 MG PO ×2 (08:10→19:59)
[2025-01-02] MEDS: PACERONE 400 MG PO ×2 (08:10→19:58)
[2025-01-02] MEDS: MIRALAX 17 GRAMS PO (08:11)
[2025-01-02] MEDS: LIDOCAINE 4% PATCH 1 PATCH TOPICAL (08:11)
[2025-01-02] MEDS: ROXICODONE 5 MG PO ×4 (08:15→21:58)
[2025-01-02] MEDS: TYLENOL 1000 MG PO (10:53)
--- NOTE | 2025-01-02 10:59 | PTCARENOTE ---
Assumed care at 0700. Patient in chair, breakfast ordered. Left chest tube to water seal, air leak present, crepitus improving per patient. Present in upper left back chest, left arm and left hand. No swelling in face and states his voice is almost
back to normal. Heimlich valve attached to chest tube at 0915, CXR done at 1015. Oxycodone given at 0800 for 3/10 pain at chest tube site and Tylenol given at 1100. Lungs CTA, POX 95%, denies shortness of breath. VSS, call [facility] in reach
[2025-01-02 12:28] LABS: Glucose - Point of Care 145 mg/dl (70-99)
[2025-01-02] MEDS: NOVOLOG FLEXPEN-MODERATE RESISTANCE SC (12:29)
[2025-01-02] MEDS: LOVENOX 40 MG SC (18:06)
[2025-01-02 18:10] LABS: Glucose - Point of Care 164 mg/dl (70-99)
[2025-01-02] MEDS: REMOVE LIDOCAINE PATCH 1 PATCH REMOVE (20:00)
[2025-01-02] MEDS: LIPITOR 10 MG PO (21:57)
[2025-01-02] MEDS: DESYREL 100 MG PO (21:58)
[2025-01-02 22:02] LABS: Glucose - Point of Care 167 mg/dl (70-99)
--- NOTE | 2025-01-03 00:28 | W.PN.CT ---
Today's Communication / Plan
-
No events overnight��
CT =�placement of�hemilock�value�(continues�to have�airleak)�
Follow daily Xray�
OOB into chair/Ambulate���
Possible DC�today�
Assessment / Plan
-
�s/p Robotic�assisted�left upper lobectomy and Mediastinal lymph node dissection by Dr. Lawson on 12/26/24, pod #8
Readmitted�on 12/30 for B/L neck swelling�and voice changes; found to have B/L�subcutaneous�emphysema (CT�showed moderate left�pneumothorax�w/o mediastinal shift), left chest tube placed
-
Past Medical History
Diabetes II (A1C 6.3)�
Hyperlipidemia�
Former smoker/COPD�
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
Chronic L hip pain, uses Roxicodone�5 mg�2-3 times/day�
NICOLE�
b/l�cataract extractions with IOL�
Preop 1st degree AVB�
Subjective
Procedure
s/p Robotic�assisted�left upper lobectomy and Mediastinal lymph node dissection by Dr. Lawson on 12/26/24
-
Date of Service: January 03, 2025
Objective Data
-
Lab Results
01/02/25 04:31
01/02/25 04:31
Vital Signs
Vital Signs
Temp Pulse Resp BP Pulse Ox
98.2 F 64 18 133/72 97
01/02/25 21:54 01/02/25 23:00 01/02/25 21:54 01/02/25 21:54 01/02/25 21:54
CT Intake/Output/Weight
01/02/25 01/02/25 01/03/25
06:59 18:59 06:59
Intake Total 320 / 420 860 / 860
Output Total 20 / 40 250 / 250
Balance 300 / 380 -250 / 610 860 / 610
SaO2: 97
Physical Exam
-
General: Awake
Cardiovascular: Regular rate & rhythm
Respiratory: Clear and Equal
Sternum: Stable
Incision: Clean, Dry and Intact
Extremities: No Edema
[2025-01-03 03:42] VITALS: BP 136/72
--- NOTE | 2025-01-03 03:54 | PTCARENOTE ---
Pt NSR on monitor, VSS. pt with crepitus throughout left arm/chest/back, around neck. CXray result reported to [facility], No new orders. Pt unable to tolerate CPAP. 2L O2 applied. Pt denies SOB.
[2025-01-03 05:38] VITALS: BMI 35.0
[2025-01-03 07:54] VITALS: BP 141/77
[2025-01-03 07:57] LABS: Glucose - Point of Care 170 mg/dl (70-99)
[2025-01-03] MEDS: ROXICODONE 5 MG PO (07:58)
[2025-01-03] MEDS: VITAMIN C 1000 MG PO (07:58)
[2025-01-03] MEDS: NOVOLOG FLEXPEN-MODERATE RESISTANCE 1 UNITS SC (07:58)
[2025-01-03] MEDS: GLUCOPHAGE 500 MG PO (07:58)
[2025-01-03] MEDS: SENOKOT 8.6 MG PO (07:59)
[2025-01-03] MEDS: NEURONTIN 100 MG PO (07:59)
[2025-01-03] MEDS: PACERONE 400 MG PO (07:59)
[2025-01-03] MEDS: LOPRESSOR 25 MG PO (07:59)
[2025-01-03] MEDS: MIRALAX PO (08:01)
[2025-01-03] MEDS: LIDOCAINE 4% PATCH 1 PATCH TOPICAL (08:02)
--- NOTE | 2025-01-03 09:28 | W.PN.CD ---
Addendum entered and electronically signed by Bal Brown MD 01/03/25 10:02:
I saw and examined the patient.
The RISK AND COMPLIANCE ANALYTICS DIRECTOR's note was reviewed and I agree with the note.
Follow up at [facility] ([facility]) at [address] [facility]
[address] Sanchez at 1:20 on 01/15/25
Original Note:
Today's Communication / Plan
-
Amiodarone as short term solange with lung disease with plan to stop in 1 month.
Would plan for amiodarone 200 mg twice daily for 10 days and then reduce to 200 mg once a day. Discontinue after 30 days
Continue metoprolol
ECG
Impression / Plan
-
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
specified below.
Adenocarcinoma of upper lobe of left lung
- s/p Robotic�assisted�left upper lobectomy and Mediastinal lymph node dissection by Dr. Lawson on 12/26/24, pod #7
- B/L�subcutaneous�emphysema (CT�showed moderate left�pneumothorax�w/o mediastinal shift), readmitted on 12/30
- Chest tube in place.
CT =�placement of�hemilock�value�management directed by CT surgery
# Tachycardia with PVCs, PACs, and blocked PACs
# Postoperative atrial fibrillation
As per EP's evaluation/Dr. Baez's note
- Episodes of brief AF - in post setting
- No plan for anticoagulation as per Dr. Baez's note.
- Post op AF is associated with development of AF later in life
- Frequent PAC and PVCs noted
- had PAC and PVCs with AIVR immediately post op.
- ECHO 12/28 - Normal LV size and systolic function. Estimated LVEF 55-60%.No significant valve abnormality.
- Suppress PACs and PVCs with Metoprolol and Amiodarone
- Amiodarone as short term solange with lung disease with plan to stop in 1 month
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
- No significant ectopy present now.
Physical Exam
Vital Signs/Labs
Vital Signs
Temp Pulse Resp BP Pulse Ox
97.7 F 63 20 136/72 96
01/03/25 07:53 01/03/25 06:00 01/03/25 07:53 01/03/25 03:42 01/03/25 07:53
01/02/25 01/03/25 01/04/25
06:59 06:59 06:59
Actual Weight 107.3 kg
01/02/25 04:31
01/02/25 04:31
Magnesium 2.1 mg/dl (1.6-2.3) 12/31/24 04:33
Physical Exam
Constitutional: No acute distress
EENT: Anicteric
Cardiovascular: Rhythm & rate is regular
Respiratory: Wheeze Absent, Crackles Absent and Other (Chest tube intact)
GI: Soft and Non tender
Neuro/Psych: Alert and Oriented
Data Reviewed
-
Date of Service: January 03, 2025
Medical Decision Making: Reviewed Test Results
Medical Tests (PFT, Pathology etc): Report Reviewed by me
Labs: Labs Reviewed by me
--- NOTE | 2025-01-03 10:06 | W.DCSUMMARY ---
Discharge Summary
Discharge Data
Date of Admission: 12/30/24
Date of Discharge: 01/03/25
-
Pending Results: No
Hospital Course
Primary care physician: Yady Babin
Outpatient outside food server: N/A
Outpatient Director Of Procurement: Frantz Healy
Inpatient consultants: Pulmonary medicine
Procedures:
1. Left tube thoracostomy
Primary Diagnosis:
1. Pneumothorax
Secondary Diagnoses:
1. Diabetes II (A1C 6.3)�
2. Hyperlipidemia�
3. Former smoker/COPD�
4. 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
5. Chronic L hip pain�
6. NICOLE�
7. b/l�cataract extractions with IOL�
8. Preop 1st degree AVB�
9. Adenocarcinoma TERI s/p TERI lobectomy 12/26/24
HPI: Mr. Lr is a 69-year-old male who is well-known to our service. He underwent robotic assisted left upper lobectomy with radical lymph node dissection by Dr. Lawson on 12/26/2024. Adenocarcinoma was confirmed. His postoperative course was
essentially uncomplicated. His chest tubes removed on postoperative day #2. At that time there was some mild subcutaneous emphysema noted however there was no pneumothorax and thus the patient was discharged to home.
Hospital course: Patient was readmitted 12/30/24 for report of worsening neck swelling with noticeable change in his voice. Chest x-ray reported extensive bilateral subcutaneous emphysema.Noncontrast CT chest and neck revealed a moderate to large
left pneumothorax, pneumomediastinum, and extensive subcutaneous emphysema consistent with his chest x-ray. He was hypoxic requiring oxygen. Emergent left pleural chest tube was placed by Dr. Ming Aguirre and patient admitted to ICU for airway
watch given his subcutaneous emphysema and potential for airway compromise. Chest tube placed to Heimlich (to PleuraVac) on 01/02 and attached to Leong bag on 01/03. Pneumothorax resolved and subcutaneous air remains on CXR. Patient stable for
discharge home with scheduled office follow-up on 01/07 for further evaluation of his subcutaneous air. He will continue on beta-terrance and amiodarone 200 mg twice daily for 10 days and then reduce to 200 mg once a day for atrial fibrillation
prophylaxis. Discontinue Amiodarone after 30 days.
Home medication changes:
Amiodarone 200 mg BID for 10 days and then reduce to 200 mg once a day for atrial fibrillation prophylaxis. Discontinue after 30 days.
Toprol 50mg daily for atrial fibrillation prophylaxis
Discharge Plan
-
Patient Disposition: Home (Routine Discharge)
Discharge Diagnosis/Procedures: Pneumothorax requiring chest tube placement
Condition: Fair
Diet: Diabetic, Carb Controlled
Activity: No strenuous activity
Driving Restrictions: Not until seen by your Dr
Specialty Instructions: Weigh Daily- Call MD for wt gain/loss 3 lbs overnight/5 lbs in 1 week
Referrals:
CT Transitional Care Nurse [Outside]
Referral Note:
The Cardiothoracic Transitional Care Nurse will call you to set up a visit in 1-2 days.
Selma Lawson MD [Active, Cardiac Surgery] - 01/09/25 10:30 am
UNKNOWN - PT DOES,NOT KNOW [Family Provider]
Paola Brown CRNP [Specified Professional Personl, Cardiac Surgery] - 01/07/25 1:45 pm
Referral Note: to evaluate chest drain and need for possible CXR
Prescriptions:
New
metoprolol succinate [Toprol XL] 50 mg tablet extended release 24 hr
50 mg PO DAILY Qty: 30 1RF
amiodarone 200 mg tablet
200 mg PO BID Qty: 60 1RF
Rx Instructions:
1 tablet 2 times daily for 10 days then 1 tab daily x 30 days
Continued
metformin 500 mg Tablet
500 mg PO BIDWMEAL
atorvastatin 10 mg Tablet
10 mg PO HS
acetaminophen 500 mg Tablet
1,000 mg PO DAILY
ascorbic acid (vitamin C) [Vitamin C] 500 mg Tablet
1,000 mg PO DAILY
trazodone 100 mg Tablet
100 mg PO HS PRN (Reason: insomnia)
zinc
1 tab PO DAILY
oxycodone 5 mg Tablet
5 mg PO Q4H PRN (Reason: pain )
cyclobenzaprine 10 mg Tablet
5 mg PO Q8HPRN PRN (Reason: muscle spasm) Qty: 30 0RF
gabapentin 100 mg Capsule
100 mg PO TID Qty: 60 0RF
Held
ibuprofen [Advil] 200 mg Tablet
600 mg PO Q6H PRN (Reason: pain)
Hold Instructions: Resume on 01/18/25.
Discharge Orders:
Discharge Patient (As Directed); Ordered 01/03/25
Ordered By: Brittnee Mcbride
Care Plan Goals
Care Plan Goals:
Problem: Readiness for enhanced knowledge related to diagnosis and treatment plan
Goal: Understand your diagnosis and treatment plan needs, including medications if applicable.
Instructions: Know your diagnosis, underlying causes and treatment plan options, including medications if applicable. Consult with your health care team to learn about your diagnosis and treatment plan, including medications if applicable.
Discharge Date and Time
Print Language: KOREAN
--- NOTE | 2025-01-03 12:01 | PTCARENOTE ---
Patient discharge to home with chest tube. Instructions reviewed with patient and he verbalized understanding. Patient escorted to [facility] in a wheelchair
== END 2025-01-03 12:24 | disposition home or self-care (01) | DRG 920 ==
LOC: IVU 12:34
PROVIDERS: Clinical Nurse Specialist Acute Care; Nurse Practitioner Primary Care; Physician Assistant Medical; ADMITTING PHYSICIAN Thoracic Surgery (Cardiothoracic Vascular Surgery); ATTENDING PHYSICIAN Student in an Organized Health Care Education/Training Program; CONSULT PHYSICIAN Internal Medicine Cardiovascular Disease; EMERGENCY PHYSICIAN Emergency Medicine
PROC: 0W9B30Z Drainage of Left Pleural Cavity with Drainage Device, Percutaneous Approach (ICD-10-PCS; 2024-12-30)
PROC: 5A09357 Assistance with Respiratory Ventilation, Less than 24 Consecutive Hours, Continuous Positive Airway Pressure (ICD-10-PCS; 2024-12-31)
DX: T81.82XA Emphysema (subcutaneous) resulting from a procedure, initial encounter (principal); C79.51 Secondary malignant neoplasm of bone; J93.9 Pneumothorax, unspecified; Y83.8 Other surgical procedures as the cause of abnormal reaction of the patient, or of later complication, without mention of misadventure at the time of the procedure; E11.9 Type 2 diabetes mellitus without complications; C73 Malignant neoplasm of thyroid gland; J44.9 Chronic obstructive pulmonary disease, unspecified; E78.00 Pure hypercholesterolemia, unspecified; G47.33 Obstructive sleep apnea (adult) (pediatric); G89.29 Other chronic pain; M25.552 Pain in left hip; I44.0 Atrioventricular block, first degree; I49.3 Ventricular premature depolarization; R09.02 Hypoxemia; Z79.899 Other long term (current) drug therapy; Z87.891 Personal history of nicotine dependence; Z85.118 Personal history of other malignant neoplasm of bronchus and lung; Z90.2 Acquired absence of lung [part of]
CPT/HCPCS: 70490; 71045; 71046; 71250; 80048; 82962; 83735; 85025; 85027; 93005; 94660; 99285

== ENCOUNTER → 2024-12-31 13:52 | Outpatient (REF) | payer BC, SELFPAY | LOC: REG 13:52 | PROVIDERS: ATTENDING PHYSICIAN Internal Medicine Hematology & Oncology; FAMILY PHYSICIAN Internal Medicine | DX: C79.51 Secondary malignant neoplasm of bone (principal); C34.92 Malignant neoplasm of unspecified part of left bronchus or lung; C73 Malignant neoplasm of thyroid gland | CPT/HCPCS: 88311 ==

== ENCOUNTER → 2025-01-09 09:37 | Outpatient (REF) | payer BC, SELFPAY | LOC: RAD 09:37 | PROVIDERS: ATTENDING PHYSICIAN Nurse Practitioner Acute Care; FAMILY PHYSICIAN Family Medicine | DX: Z96.89 Presence of other specified functional implants (principal) | CPT/HCPCS: 71046 ==

== ENCOUNTER → 2025-02-04 13:00 | Outpatient (REF) | payer BC, SELFPAY | LOC: RAD 13:00 | PROVIDERS: ATTENDING PHYSICIAN Physician Assistant; FAMILY PHYSICIAN Internal Medicine | DX: C73 Malignant neoplasm of thyroid gland (principal); C79.51 Secondary malignant neoplasm of bone | CPT/HCPCS: 73552 ==

== ENCOUNTER 2025-03-04 13:42 | Outpatient (RCR) | payer BC, SELFPAY | END 2025-03-12 23:59 | disposition home or self-care (01) | LOC: RPT 13:42 | PROVIDERS: ATTENDING PHYSICIAN Orthopaedic Surgery; FAMILY PHYSICIAN Family Medicine | DX: C73 Malignant neoplasm of thyroid gland (principal); M25.552 Pain in left hip; M62.81 Muscle weakness (generalized); Z73.6 Limitation of activities due to disability; R26.2 Difficulty in walking, not elsewhere classified; C34.90 Malignant neoplasm of unspecified part of unspecified bronchus or lung; Z98.890 Other specified postprocedural states | CPT/HCPCS: 97110; 97112; 97161 ==

== ENCOUNTER → 2025-03-05 08:09 | Outpatient (REF) | payer BC, SELFPAY ==
[2025-03-05 08:52] VITALS: BP 150/80; BP_SYST 57
[2025-03-05] MEDS: ANCEF 10 IV (09:44)
[2025-03-05 10:40] VITALS: BP 154/72; BP_SYST 70
[2025-03-05 10:45] VITALS: BP 135/68; BP_SYST 75
[2025-03-05 11:00] VITALS: BP 175/78; BP_SYST 95
== END ==
LOC: RADI 08:09
PROVIDERS: ATTENDING PHYSICIAN Internal Medicine Hematology & Oncology; FAMILY PHYSICIAN Family Medicine; OTHER PHYSICIAN Radiology Radiation Oncology
DX: C34.92 Malignant neoplasm of unspecified part of left bronchus or lung (principal)
CPT/HCPCS: 36561; 76937; 77001; 99152; 99153; C1788